=== PATIENT | female | born 1990 | race Caucasian/White ===

== ENCOUNTER 2025-04-21 17:27 | Inpatient (IN) | payer BC, OTHER, SELFPAY ==
[2025-04-21] VITALS (21 sets, daily range): BP systolic 121–167; BP diastolic 67–135; PULSE 94; BMI 17.5; BMI 17.7
[2025-04-21 15:29] LABS: Hematocrit 37.5 % (37.0-47.0); Hemoglobin 12.2 g/dL (12.0-16.0); Mean Corp Hgb Conc. 32.5 g/dL (33.0-37.0); Mean Corpuscular Volume 78.1 fL (81.0-99.0); Nucleated Red Blood Cells % 0 %; Platelet Count 436 10^3/uL (130-400); Red Cell Dist. Width 15.6 % (11.5-14.5)
--- NOTE | 2025-04-21 15:46 | ED.GENMED ---
History of Present Illness
General
Chief Complaint: Abdominal Symptoms
Source: patient and records
Exam Limitations: altered mental status
Time Seen by Provider: 04/21/25 15:17
Nursing documentation reviewed up to this point in time: agreed with
History of Present Illness
History of Present Illness:
34-year-old female apparently homeless drug addiction brought in the local [facility] last evening
Uses methamphetamine, benzodiazepines, alcohol, fentanyl
Here she is tremulous confused vomiting tachycardic
No fever
History of an arrhythmia, history of an epidural abscess?
Phy Exam
Physical Exam
Physical Exam:
Physical Exam
General: Ill-appearing female vomit
Neck: Dry lips
Heart: Tachycardia
Lungs: no acute respiratory distress. clear bilaterally
Abdomen: Soft
Neuro: Confused moves all
Skin: no rash
Psychiatric: Disheveled,
Extremities: no edema.
Course
Orders/Labs/Results
Orders:
Orders
04/21/25 15:04
EKG [Electrocardiogram (*1)] Urgent
Reason for Study: Abdominal Pain
04/21/25 15:05
EKG- Treatment ONCE
Test Result ONCE
04/21/25 15:09
Complete Blood Count/With Diff Urgent
04/21/25 15:33
diazePAM [Valium Injection] 10 mg IV NOW STA
04/21/25 15:34
Add On- LAB Urgent
Tests Added?: magnesium
Drug Screen, Urine [Urine Drug Abuse Screen] Urgent
0.9% Sodium Chloride 1000 ml [Nss] 2,000 ml IV BOLUS
04/21/25 15:35
Fentanyl, Urine Urgent
04/21/25 16:02
Alcohol Urgent
Comprehensive Metabolic Panel Urgent
HCG, Serum Qualitative Screen Urgent
Lipase Urgent
Comment: ADD ON
Magnesium Urgent
04/21/25 16:10
CR Chest Portable - 1 View Urgent
Comment:
Reason For Exam: withdrawals
Reason Study Needs to be Portable: Patient Unstable
04/21/25 16:11
Buprenorphine HCl [Belbuca] 150 mcg BUCCAL NOW STA
04/21/25 16:37
Potassium Chloride [KCl] 40 meq 0.9% Sodium Chloride 250 ml [Nss] 250 ml IV NOW
04/21/25 16:40
Add On- LAB Urgent
Tests Added?: Lipase
Drug Screen, Urine [Urine Drug Abuse Screen] Urgent
Abnormal Lab Results
04/21/25 04/21/25
15:09 16:02
MCV 78.1 L fL
(81.0-99.0)
MCH 25.4 L pg
(27.0-31.0)
MCHC 32.5 L g/dL
(33.0-37.0)
RDW 15.6 H %
(11.5-14.5)
Plt Count 436 H 10^3/uL
(130-400)
Absolute Neuts (auto) 8.1 H 10^3/uL
(1.4-6.5)
Neutrophils % 83.6 H %
(42.2-75.2)
Lymphocytes % 12.5 L %
(20.5-51.1)
Potassium 3.0 L mmol/L
(3.5-5.1)
Glucose 118 H mg/dl
(70-99)
04/21/25 15:09
04/21/25 16:02
Vital Signs
Initial and Last Documented VS:
Initial Vital Signs
Temp Pulse Resp BP Pulse Ox
98.7 F 95 20 151/112 100
04/21/25 15:18 04/21/25 15:18 04/21/25 15:18 04/21/25 15:18 04/21/25 15:18
Last Documented Vital Signs
Temp Pulse Resp BP Pulse Ox
98.7 F 95 20 151/112 100
04/21/25 15:18 04/21/25 15:18 04/21/25 15:18 04/21/25 15:18 04/21/25 15:47
MDM/Problems Addressed
Differential Diagnosis Includes:
Delirium tremens narcotic withdrawal benzo withdrawal dehydration electrolyte abnormality
MDM/Problems Addressed:
Withdrawal
Chronic conditions affecting care:
Homeless drug addiction
Acute Exacerbation and/or Progression of Chronic Illness:
Homeless drug addiction
*Pulse Oximetry
SaO2: 100
Oxygen Mode of Delivery: Room air
Patient hypoxic: no
*EKG
Interpreted by ED Provider?: Yes
Interpretation: abnormal
Comparison EKG: no comparison EKG present
Heart Rate: 75
Rate: normal
Rhythm: sinus
Ischemia: non-specific ST changes
*District Sales Coordinator Interpretation
Rate: normal
Interpretation: normal
Heart Rate: 78
Rhythm: sinus
*Critical Care Note
Total Time (30-74mins, 75-104mins- exclusive of procedures): 32
Update Note
Update Note:
Update, still tremulous and confused, vomiting will require admission drug withdrawal alcohol withdrawal possible DTs
ED Attending Note
-
Portions of this chart may have been created with voice recognition software.� Occasional wrong word or��sound alike� substitutions may have occurred due to the inherent limitations of voice recognition software.
Discharge Plan
Departure
Patient Disposition: Admit
Date of Disposition: 04/21/25
Time of Disposition: 16:40
Admit to: ICU
Presentation/result/management discussed w/ accepting MD/DO: Hospitalist
Patient with high blood pressure during this ER visit?: Yes
Condition: Serious
Covid-19: Not Applicable
Discharge Problem:
Acute drug withdrawal syndrome, DTs (delirium tremens)
Referrals:
UNKNOWN - PT DOES,NOT KNOW [Family Provider]
Discharge Date and Time
Print Language: HEBREW
[2025-04-21] MEDS: NSS 2000 IV (16:06)
[2025-04-21] MEDS: VALIUM INJECTION 10 MG IV ×4 (16:06→23:42)
[2025-04-21 16:26] LABS: HCG, Serum Qualitative Screen Negative
[2025-04-21] MEDS: BELBUCA 150 MCG BUCCAL (16:28)
[2025-04-21 16:32] LABS: ALT (SGPT) 31 U/L (0-35); AST (SGOT) 33 U/L (14-36); Albumin 4.3 g/dl (3.5-5.0); Alkaline Phosphatase 67 U/L (38-126); Blood Urea Nitrogen 13 mg/dl (7-17); Calcium 9.0 mg/dl (8.4-10.2); Carbon Dioxide 25 mmol/L (22-30); Chloride 107 mmol/L (98-107); Estimated Creatinine Clearance 94 ml/min; Glucose 118 mg/dl (70-99); Potassium 3.0 mmol/L (3.5-5.1); Sodium 140 mmol/L (135-145); Total Protein 7.5 g/dl (6.3-8.2); eGFR > 60.00
[2025-04-21 16:54] LABS: Lipase 160 U/L (23-300); Magnesium 1.6 mg/dl (1.6-2.3)
--- NOTE | 2025-04-21 17:11 | HPS.HSE ---
Family Physician
-
Family Physician: NOT KNOW UNKNOWN - PT DOES
Chief Complaint
-
hallucinations, tremors, nausea
History of Present Illness
34yo F with PMHx of drug abuse including IVDA and alcohol, currently homeless brought from incarceration after found with nausea, vomiting and hallucinations. She admitted to the [facility] staff to take various drugs. PAtient found in ED tremulous, c/o
upset stomack, vomiting bile, but without abdominal tenderness. Poor historin but AAOx3. C/O thirst. Afebrile and no leukocytosis.
Medical History
Past Medical History
Past Medical History: Reports None
Past Surgical History: Reports None
Social History
Tobacco: Smoker
Alcohol: Chronic Alcoholic
Drug: Cocaine and IVDA
Living: Homeless
Family History
Family History: Not pertinent
Allergies / Home Medications
Allergies reflects when Allergies were last updated in [facility].
Home Medications with original date entered in [facility]
Allergy/Medication List:
Allergies
Allergy/AdvReac Type Severity Reaction Status Date / Time
No Known Allergies Allergy Verified 04/21/25 15:03
Home Medications
Unobtainable 04/21/25
Review of Systems
-
Unable to obtain full review of systems at this time due to: Acuity
History Source: Patient
Abdomen/GI: Reports Nausea and Vomiting
Physical Exam
Vital Signs
Vital Signs
Temp Pulse Resp BP Pulse Ox
98.7 F 83 24 159/97 100
04/21/25 15:18 04/21/25 17:00 04/21/25 17:00 04/21/25 16:46 04/21/25 16:30
Physical Exam
General: Appears in Distress
HEENT: NormoCephalic, Anicteric and Moist mucous membranes
Respiratory: Clear; No Wheezes or Rhonchi
Cardiac: S1/S2 and Regular Rhythm; No Tachycardia
GI: Soft, Non Tender and Non Distended
Musculoskeletal: No Clubbing, No Cyanosis and No Edema
Skin: Warm; No Rash or Jaundice
Neuro: Awake, Alert, Nonfocal/grossly intact and Cranial Nerves Intact
Psych: Confused and Agitated
Laboratory Results
-
04/21/25 15:09
04/21/25 16:02
Laboratory Results
Total Bilirubin 0.4 mg/dl (0.2-1.3) 04/21/25 16:02
AST 33 U/L (14-36) 04/21/25 16:02
ALT 31 U/L (0-35) 04/21/25 16:02
Alkaline Phosphatase 67 U/L (38-126) 04/21/25 16:02
Lipase 160 U/L (23-300) 04/21/25 16:02
Data Reviewed
-
Lab Data: Labs Reviewed by me
Impression/Plan
-
A/P:
#Polysubstance abuse with withdrawal, impending DT
#Hallucinations 2/2 withdrawal
Precedex drip
RASS 0 to -2
NPO while sedated, IVF
eventual phenobarb
start subutex
CM for BCARES
check UDS
Unable to tolerate CT at this time, but if mentation not improving- CT head
Thiamine Wernikie protocol
FOlate IV
MSAS
check lipase, TSH
#Hypokalemia
#PVCs 2/2 withdrawal and hypokalemia
replete
check Mg
follow electrolytes
#Reactive thrombocytosis
follow CBC
#Microcytosis
check iron panel
DVT ppx lovenox
Full code
I have spent at least 76min of critical care time reviewign chart, test results, data from snf and providing direct patient care
[2025-04-21] MEDS: PRECEDEX 100 IV ×2 (17:27→22:52)
[2025-04-21 17:52] LABS: Iron 106 ug/dl (37-170)
[2025-04-21 18:01] LABS: Total Iron Binding Capacity 379 ug/dl (265-497)
--- NOTE | 2025-04-21 18:10 | PTCARENOTE ---
Received patient from ED, admitted with withdrawal symptoms. Patient arrived agitated and restless, unable to follow commands. Hallucinating and thrashing around in bed. 2 guards present at bedside- 1 shackle placed. Precedex drip infusing per
order. See MAR.
[2025-04-21 18:13] LABS: Glucose - Point of Care 71 mg/dl (70-99)
[2025-04-21] MEDS: PHENOBARBITAL 104 MG IV (18:14)
[2025-04-21] MEDS: ZOFRAN 4 MG IV (18:14)
[2025-04-21] MEDS: KCL 270 MEQ IV (18:19)
[2025-04-21] MEDS: MAGNESIUM SULFATE 50 IV (18:22)
--- NOTE | 2025-04-21 18:28 | PTCARENOTE ---
vascular access at bedside attempting IV access at this time
[2025-04-21] MEDS: D5LR 1000 IV ×2 (18:36→22:11)
--- NOTE | 2025-04-21 18:55 | PTCARENOTE ---
vomited another 150 ml bilious thin fluid, resting eyes closed when undisturbed, still occas restless and pressured nonsensical speech.
--- NOTE | 2025-04-21 20:00 | PTCARENOTE ---
on assessment pt agitated, unable to get IVs, VAT team at bedside to place midline, pt very agitated and unable to remain still, PRN meds given see MAR, DEX gtt infusing per orders, lice noted on pt scalp, pt agreeable to have hair trimmed,
treatment provided, HYDRAULIC MODELING ENGINEER aware
[2025-04-21] MEDS: THIAMINE INJECTION 255 MG IV (20:10)
[2025-04-21] MEDS: LOVENOX 40 MG SC (20:10)
[2025-04-21 20:46] LABS: INR 1.04; PT 14.0 Sec (11.4-14.6)
[2025-04-21 20:47] LABS: APTT 22.0 Sec (23.4-35.0)
[2025-04-21] MEDS: ELIMITE/ACTICIN/PERMETHRIN 5% 1 APPLIC TOPICAL (21:32)
--- NOTE | 2025-04-21 23:15 | PTCARENOTE ---
Prior to applying elimite, pt agreeable to having staff cut her hair for management of lice/nits. Pt having lucid moment and aware of lice & nits -- understands the need to apply elimite. Pt tolerated and cooperative. Witnessed with pts primary RN
and guards at bedside.
--- NOTE | 2025-04-21 23:23 | PTCARENOTE ---
Prior to applying elimite, pt agreeable to having staff cut her hair for management of lice/nits. Pt having lucid moment and aware of lice nits and the need to apply elimite. Witnessed with pts primary RN and guards at bedside.
--- NOTE | 2025-04-21 23:29 | PTCARENOTE ---
pt still restless, PRN meds given see SEP,
[2025-04-22] VITALS (29 sets, daily range): BP systolic 120–170; BP diastolic 82–121; BMI 17.8
[2025-04-22] MEDS: VALIUM INJECTION 10 MG IV ×5 (00:32→04:48)
[2025-04-22] MEDS: THIAMINE INJECTION IV (00:48)
--- NOTE | 2025-04-22 02:29 | PTCARENOTE ---
pt constantly moving in bed when BP cuff is going off, BRUSH MATERIAL PREPARER made aware of high BP see flow sheet
[2025-04-22] MEDS: PRECEDEX 100 IV ×4 (02:45→21:06)
[2025-04-22] MEDS: THIAMINE INJECTION 255 MG IV ×2 (03:20→13:05)
[2025-04-22 03:42] LABS: Hematocrit 32.1 % (37.0-47.0); Hemoglobin 10.7 g/dL (12.0-16.0); Mean Corp Hgb Conc. 33.3 g/dL (33.0-37.0); Mean Corpuscular Volume 80.7 fL (81.0-99.0); Nucleated Red Blood Cells % 0 %; Platelet Count 323 10^3/uL (130-400); Red Cell Dist. Width 15.7 % (11.5-14.5)
--- NOTE | 2025-04-22 04:05 | W.PN.UPDATE ---
Update Note
Progress Note Update
Lice noted on pt scalp, pt agreeable to have hair trimmed, treatment ordered/provided Permethrin 5% topical application x 1 dose.
[2025-04-22 04:10] LABS: ALT (SGPT) 27 U/L (0-35); AST (SGOT) 31 U/L (14-36); Albumin 4.1 g/dl (3.5-5.0); Alkaline Phosphatase 60 U/L (38-126); Blood Urea Nitrogen 9 mg/dl (7-17); Calcium 8.5 mg/dl (8.4-10.2); Carbon Dioxide 22 mmol/L (22-30); Chloride 111 mmol/L (98-107); Estimated Creatinine Clearance 96 ml/min; Glucose 114 mg/dl (70-99); Magnesium 2.3 mg/dl (1.6-2.3); Potassium 3.2 mmol/L (3.5-5.1); Sodium 141 mmol/L (135-145); Total Protein 7.3 g/dl (6.3-8.2); eGFR > 60.00
[2025-04-22] MEDS: KCL 270 MEQ IV (04:48)
[2025-04-22] MEDS: ZANAFLEX PO (05:24)
--- NOTE | 2025-04-22 05:34 | PTCARENOTE ---
pt BP elevated while at rest, PURIFICATION OPERATOR aware, unable to take p.o at this time,
--- NOTE | 2025-04-22 07:49 | W.PN.HOSP.TC ---
Today's Communication/Plan
-
cont precedex and subutex
Assessment / Plan
Assessment / Plan
34yo F with PMHx of drug abuse including IVDA and alcohol, currently homeless brought from incarceration after found with nausea, vomiting and hallucinations. Managed for polysubstance abuse and withdrawal
A/P:
#Polysubstance abuse with withdrawal, impending DT
#Hallucinations 2/2 withdrawal
Precedex drip
RASS 0 to -2
NPO while sedated, IVF
eventual phenobarb
start subutex PRN protocol
UDS: Opiates, Fentanyl, Barbiturates, Amphetamines, Methamphetamines, BZD positive
Unable to tolerate CT at this time, but if mentation not improving- CT head
Thiamine Wernikie protocol
FOlate IV
MSAS
lipase WNL
#Subclinical hyperthyroidism
TSH 0.25, FT4 WNL
repeat TFT 2-3 weeks upon recovery
#Elevated BP 2/2 withdrawal
Hydralazine IV
Clonidine PO
#Hypokalemia
Hypomagnesemia
#PVCs 2/2 withdrawal and hypokalemia
replete
follow electrolytes
#Reactive thrombocytosis
resolved
#Microcytosis
iron panel WNL
DVT ppx lovenox
Full code
I have spent at least 56min of critical care time reviewign chart, test results, data from senior living and providing direct patient care
Anticipated Discharge: > 48 hours
Subjective/Interval History
-
Date of Service: April 22, 2025
Objective Data
-
Labs:
Laboratory Results
04/21/25 04/22/25
19:52 03:08
WBC 8.9
Hgb 10.7 L
Hct 32.1 L
Plt Count 323 D
PT 14.0
INR 1.04
APTT 22.0 L
Sodium 141
Potassium 3.2 L
Chloride 111 H
Carbon Dioxide 22
BUN 9
Creatinine 0.6
Glucose 114 H
Calcium 8.5
Total Bilirubin 0.5
AST 31
ALT 27
Alkaline Phosphatase 60
Vital Signs:
Vital Signs
Temp Pulse Resp BP Pulse Ox
98 F 72 26 167/116 100
04/22/25 07:36 04/22/25 05:15 04/22/25 05:15 04/22/25 05:00 04/22/25 05:15
I&O
04/21/25 04/22/25 04/23/25
06:59 06:59 06:59
Intake Total 1707.6 / 1707.6
Output Total 1200 / 1200
Balance 507.6 / 507.6
Review of Systems
-
Unable to obtain full review of systems at this time due to: Other (sedation)
Physical Exam
-
General: No Apparent Distress
Neuro: Sedated
Psych: Calm
--- NOTE | 2025-04-22 08:00 | CON.INTV ---
Consultation
Consultation Request
Date/Time Consultation Requested: 04/21/25, 17:11
Date/Time Consultation Performed: 04/23/25, 8:00am
Medical History
-
Chief Complaint: polysubstance abuse withdrawal (ETOH, IV drugs)
History of Present Illness:
Pt is a 34yo F with a pmh of WANG (IVDU opioids, cocaine, alcohol), tobacco use, homelessness, & incarceration (current), who presents with nausea/vomiting and hallucinations c/f multisubstance withdrawal.
In the ED, pt was tremulous and with bilious emesis. Denied abdominal tenderness. Complained of thirst. Was AOx3. Afebrile. BP 151/112, HR 95-101, RR 24-30. No leukocytosis. Labs unremarkable. Blood alcohol level negative. UDS negative for cocaine &
marijuana, positive for amphetamines, opioids, benzos (unclear timing of UDS w meds given in ED). Pt noted to have lice on scalp; hair was trimmed.
CXR in the ED demonstrated no evidence of acute cardiopulm dz. EKG in the ED: sinus rhythm with frequent PVCs in bigeminy pattern.
Pt received buprenorphine, phenobarb taper, precedex, thiamine, folate, zofran, IVF. Started on COWS/MSAS protocol w diazepam PRN, and PRN tizanidine and clonidine. Pt was given topical permethrin 5% for scalp.
This am, patient was somnolent and unable to be aroused to respond to questions. Unable to confirm amount/type of substances or time of last use. Appeared to be sleeping comfortably.
Past Medical History
Past Medical History: Other (WANG )
Past Surgical History: None
Social History
Tobacco: Smoker
Alcohol: Other (yes, unknown amt )
Drug: Cocaine, Narcotics and IVDA
Living: Homeless and Long-Term
Family History
Family History: Reviewed & Not Pertinent
Allergies / Home Medications
Allergies
Allergy/AdvReac Type Severity Reaction Status Date / Time
No Known Allergies Allergy Verified 04/21/25 15:03
Home Medications
�Medication �Instructions �Recorded �Confirmed �Last Taken �Type
Unobtainable 04/21/25 04/21/25 Unknown History
Review of Systems
-
Unable to Obtain full review of systems at this time due to: Other (patient not arousable )
History Source: Patient
Vitals / Labs / Diagnostic Testing
Vital Signs
Temp Pulse Resp BP Pulse Ox
98 F 66 29 148/116 100
04/22/25 07:36 04/22/25 07:45 04/22/25 07:45 04/22/25 07:00 04/22/25 07:45
Lab Data
04/22/25 03:08
04/22/25 03:08
Laboratory Results
04/21/25
19:52
PT 14.0
INR 1.04
APTT 22.0 L
Diagnostic Testing:
Physical Exam
-
HEENT: Normocephalic
Cardiovascular: Regular Rhythm
Respiratory: Non-Labored Respirations
GI: Non Distended
Neurology: Other (sedated)
Skin: Dry and Good Color
General: Other (sleeping comfortably; with soft restraints on extremities; handcuff on L ankle )
Assessment
-
Pt is a 34yo F with a pmh of WANG (IVDU opioids, cocaine, alcohol), tobacco use, homelessness, & incarceration (current), who presents with nausea/vomiting and hallucinations c/f multisubstance withdrawal.
#Multisubstance withdrawal (alcohol/benzo & opioid)
#Hallucinations in s/o withdrawal
UDS + for amphetamines/methamphetamines, opiates, fentanyl, benzo. Pt endorsed alcohol use, cocaine use (negative on UDS), & IVDU (likely opioid). P/w hallucinations and n/v. Will cover for presumed combination opioid withdrawal and benzo/alcohol
withdrawal.
Today: sedated/somnolent; unable to endorse sx.
- Re-initiate buprenorphine/oxycodone protocol for opioid withdrawal; COWs
- Start opioid (4morphine or 50 fentanyl or 0.5mg dilaudid) if pt not able to take PO above
- Continue precedex (rate of 1.5 ml/hr)
- Continue phenobarb taper (received 97.5mg today)
- Continue thiamine and folate IV
- PRNs: tizanidine 2m q6h, zofran 4mg q8h, clonidine 0.1mg q6h
- Hold on benzos today (avoid oversedation)
- VBG this afternoon
#HTN
In s/o multidrug withdrawal. 151/112 on presentation.
Today: 148/116; HR 66
- Hydralazine 10mg q4h prn if systolic BP>170
#Anemia
Hgb 12.2>10.7; MCV: 80.7; RDW: 15.7. Likely 2/2 inflammatory state. Iron level wnl 106.
- Continue to monitor
- Could consider retic count, ferritin
#Hypokalemia
#PVCs
PVCs in s/o withdrawal, hypokalemia. Mg 1.6 on admission, K 3.0
Today: K 3.2, Mg 2.3
- Continue KCl repletion
- Continue Mg repletion
- Keep K>4, Mg>2
- Trend BMP
- Telemetry
#Lice
S/p haircut and permethrin topical application.
- Continue to monitor
#Chronic
- Subclinical hyperthyroidism (TSH 0.25, free T4 wnl) - Repeat TSH 2-3 weeks upon recovery
- Tobacco use - Nicotine patch while inpatient
#Global
- DVT ppx: lovenox
- Diet: NPO while sedated
- Code: full
- Dispo: intermediate
Data Reviewed
-
EKG: Report reviewed by me
Radiology: Report reviewed by me
Labs: Labs reviewed by me
Critical Care Time (in minutes): 40
Total Time Spent with Patient (in minutes): 10
[2025-04-22] MEDS: PHENOBARBITAL 97.5 MG IV ×3 (08:36→21:06)
[2025-04-22] MEDS: FOLVITE PO (08:48)
[2025-04-22] MEDS: VALIUM INJECTION 5 MG IV (09:01)
[2025-04-22] MEDS: FOLVITE 50.2 MG IV (09:01)
--- NOTE | 2025-04-22 10:28 | PTCARENOTE ---
Rec'd care of patient at 0700. Alerted by guards that patient voided on the floor. Patient restless and agitated in bed. Unable to be reoriented. Complete bed bath provided and patient repositioned for comfort. Patient calm and sleeping after care.
Precedex gtt infusing. NSR on tele. Lung sounds cta. Pulse ox 98-99% on RA. +BS. No bm. NPO due to mental status. IVFs infusing through left midline. Incontinent of urine. Plan of care discussed during rounds. Microdosing protocol initiated.
[2025-04-22] MEDS: SUBLIMAZE 50 MCG IV (11:09)
[2025-04-22] MEDS: BELBUCA 300 MCG BUCCAL ×4 (11:09→23:35)
[2025-04-22] MEDS: D5LR 1000 IV ×2 (11:10→23:23)
[2025-04-22 11:19] LABS: Reticulocyte Count 1.6 % (0.4-2.8)
[2025-04-22] MEDS: NICODERM TRANSDERMAL 7 MG TRANSDERM (12:39)
--- NOTE | 2025-04-22 13:11 | CM ---
Patient going through withdrawal. Is in custody of [facility]. Officers present. Discharge POC: Patient to return to [facility]. BCARES notified of consult.
--- NOTE | 2025-04-22 13:52 | PTCARENOTE ---
Mentation improving throughout shift. Patient aware she is in the hospital and why. Cooperative with care. IVF rate decreased. Diet advanced to regular. Head ct completed per MD order. No other changes.
[2025-04-22 13:57] LABS: Ferritin 12.7 ng/ml (6.24-137)
[2025-04-22 15:04] LABS: Venous Blood Gas B.E. -1.8 mmol/L (-4 to +4); Venous Blood Gas O2 Sat % 95.5 %
[2025-04-22] MEDS: THIAMINE INJECTION 200 MG IV ×2 (16:23→23:30)
[2025-04-22] MEDS: OXYCONTIN (CONTROLLED RELEASE) 40 MG PO ×2 (16:23→23:35)
--- NOTE | 2025-04-22 16:43 | PTCARENOTE ---
Patient resting comfortably. Oriented. NSR on tele. VSS. Assisted in ordering dinner. Precedex gtt remains infusing.
[2025-04-22] MEDS: LOVENOX 40 MG SC (18:09)
[2025-04-22] MEDS: REMOVE NICOTINE PATCH 1 PATCH REMOVE (21:17)
--- NOTE | 2025-04-22 21:45 | PTCARENOTE ---
Received pt from previous RN. Pt is AAOx3, drowsy @ times, anxious. NSR on the monitor. Pt on RA O2 sat 100%, lungs clear. Pw in place for incont, pw exchanged hygiene provided. Received dex at 1.5 mcg, titration per protocol (see worklist). IVF
infusing @ 80 ml/hr. CHG bath provided. Two guards at bedside. Call colon in reach. Safe environment maintained.
[2025-04-23] VITALS (26 sets, daily range): BP systolic 103–185; BP diastolic 74–142; BMI 18.5
--- NOTE | 2025-04-23 00:17 | PTCARENOTE ---
Systems reviewed, no new changes in assessment. Dex gtt maintained. Call colon in reach. Safe environment maintained.
--- NOTE | 2025-04-23 04:04 | PTCARENOTE ---
Systems reviewed, no new changes in assessment. AM labs provided. Call colon in reach. Safe environment maintained.
[2025-04-23] MEDS: BELBUCA 300 MCG BUCCAL ×2 (04:11→09:14)
[2025-04-23 04:55] LABS: Hematocrit 30.3 % (37.0-47.0); Hemoglobin 10.0 g/dL (12.0-16.0); Mean Corp Hgb Conc. 33.0 g/dL (33.0-37.0); Mean Corpuscular Volume 80.6 fL (81.0-99.0); Nucleated Red Blood Cells % 0 %; Platelet Count 287 10^3/uL (130-400); Red Cell Dist. Width 15.3 % (11.5-14.5)
[2025-04-23 05:16] LABS: ALT (SGPT) 21 U/L (0-35); AST (SGOT) 19 U/L (14-36); Albumin 3.2 g/dl (3.5-5.0); Alkaline Phosphatase 52 U/L (38-126); Blood Urea Nitrogen 10 mg/dl (7-17); Calcium 8.2 mg/dl (8.4-10.2); Carbon Dioxide 22 mmol/L (22-30); Chloride 110 mmol/L (98-107); Estimated Creatinine Clearance 100 ml/min; Glucose 96 mg/dl (70-99); Magnesium 1.8 mg/dl (1.6-2.3); Potassium 3.4 mmol/L (3.5-5.1); Sodium 136 mmol/L (135-145); Total Protein 6.2 g/dl (6.3-8.2); eGFR > 60.00
[2025-04-23] MEDS: KCL 40 MEQ PO (05:30)
[2025-04-23] MEDS: PRECEDEX 100 IV (05:32)
[2025-04-23] MEDS: MAGNESIUM SULFATE 100 IV (05:32)
--- NOTE | 2025-04-23 07:56 | W.PN.INTV ---
Today's Communication / Plan
Recommendations
- Wean precedex off today, then downgrade to tele
- Continue buprenorphine
- Continue phenobarb taper
- Continue thiamine/folate IV
- Laxatives standing
- Replete K, Mg
- Add ensure to regular diet
- Stop IVF
- PRN zofran
Assessment
-
Pt is a 34yo F with a pmh of WANG (IVDU opioids, cocaine, alcohol), tobacco use, homelessness, & incarceration (current), who presents with nausea/vomiting and hallucinations c/f multisubstance withdrawal.
#Multisubstance withdrawal (alcohol/benzo & opioid)
#Hallucinations in s/o withdrawal
UDS + for amphetamines/methamphetamines, opiates, fentanyl, benzo. Pt endorsed alcohol use, cocaine use (negative on UDS), & IVDU (likely opioid). P/w hallucinations and n/v. Will cover for presumed combination opioid withdrawal and benzo/alcohol
withdrawal.
Today: Afebrile, not tachycardic, not tachypneic. Sx well-controlled. Able to keep down food.
- Continue buprenorphine/oxycodone protocol for opioid withdrawal; COWs
- Continue weaning down precedex (rate of 0.3 ml/hr this am)
- Continue phenobarb taper (received 97.5mg yesterday)
- Continue thiamine and folate IV
- PRNs: tizanidine 2m q6h, zofran 4mg q8h, clonidine 0.1mg q6h
- Hold on benzos (avoid oversedation)
- Stop D5 fluids today
#HTN
In s/o multidrug withdrawal. 151/112 on presentation.
Today: 157/112; HR 66
- Hydralazine 10mg q4h prn if systolic BP>170
#Anemia
Hgb 12.2>10.7>10; MCV: 80.7; RDW: 15.7. Iron level wnl 106. Ferritin 12.7. Retic 1.6. wnl. Likely dilutional.
- Continue to monitor
#Hypokalemia
#PVCs
PVCs in s/o withdrawal, hypokalemia. Mg 1.6 on admission, K 3.0
Today: K 3.4, Mg 1.8
- Continue KCl repletion
- Continue Mg repletion
- Keep K>4, Mg>2
- Trend BMP
- Telemetry
#Lice
S/p haircut and permethrin topical application.
- Continue to monitor
#Chronic
- Subclinical hyperthyroidism (TSH 0.25, free T4 wnl) - Repeat TSH 2-3 weeks upon recovery
- Tobacco use - Nicotine patch while inpatient
#Global
- DVT ppx: lovenox
- Diet: regular + ensure
- Code: full
- Dispo: retirement; downgrade to tele once off precedex
Subjective Dataa
Subjective Data
Date of Service:
Date of Service: April 23, 2025
Chief Complaint: Podiatric Physician Follow Up
Subjective:
Patient awake, responsive this morning. States that she had an episode of emesis yesterday but has not had nausea/vomiting since dinner. She was able to keep down food and water. Denies any ongoing hallucinations, denies tremors, denies abdominal
pain, denies diarrhea, denies shortness of breath. Has no complaints of symptoms. Per RN, has strong appetite.
Review of Systems
General: Satisfactory Appetite
Cardiopulmonary: Dyspnea (denies)
GI: Abdominal Pain (denies), Nausea (Denies) and Diarrhea (Denies)
Neuro: Headache (Denies)
Objective Data
Data Reviewed
Vital Signs / I&O / Oxygen:
Vital Signs
Temp Pulse Resp BP Pulse Ox
98.3 F 66 20 157/112 100
04/23/25 04:10 04/23/25 07:00 04/23/25 07:00 04/23/25 07:00 04/22/25 21:34
Intake and Output
04/22/25 04/23/25 04/24/25
06:59 06:59 06:59
Intake Total 1707.6 / 1849.9 3195.0 / 3195.0
Output Total 1200 / 1200 225 / 225
Balance 507.6 / 649.9 2970.0 / 2970.0
SaO2 100
Physical Exam
General: Comfortable
HEENT: Normocephalic and Anicteric
Cardiovascular: Regular Rhythm
Respiratory: Clear and Non-Labored Respirations
GI: Soft and Non Distended
Neurology: Awake, Alert and Oriented
Skin: Warm and Dry
Labs/Micro/Reports
Lab Data
04/23/25 04:22
04/23/25 04:22
Microbiology
04/22/25 03:08 Nose MRSA Screen - Final
No Methicillin Resistant Staphylococcus aureus isolated.
[2025-04-23] MEDS: NICODERM TRANSDERMAL 7 MG TRANSDERM (09:13)
[2025-04-23] MEDS: FOLVITE 1 MG PO (09:13)
[2025-04-23] MEDS: OXYCONTIN (CONTROLLED RELEASE) 40 MG PO ×3 (09:13→23:49)
[2025-04-23] MEDS: THIAMINE INJECTION 200 MG IV ×3 (09:14→23:49)
[2025-04-23] MEDS: PHENOBARBITAL 97.5 MG IV (09:14)
--- NOTE | 2025-04-23 09:26 | PN.CDI ---
CDI
- -
CDI:
Physician Documentation Request
Admit Date: 04/21/25 17:27
Dear Doctor Lu,
Please review the following and provide your response in the progress notes.
Clinical Indicators:
Height: 5 ft 4 in
Weight:107 lb 12 oz
BMI:17.5
Other Clinical Notes: Pt admitted with polysubstance withdrawal
Nutrition note 04/22,' CBW: 103 lbs 13.404oz BMI 17.8 underweight (04/22). ...04/22 underweight related to suspected inadequate energy intakes as evidenced by BMI...'
If possible, please provide an associated diagnosis related to the abnormal BMI, such as:
BMI < or = to 19
Underweight
Cachectic
- Other
Use of terms such as suspected, likely, concern for, or probable (associated with a specific diagnosis that is being evaluated, monitored, or treated as if it exists) are acceptable and can be coded in the inpatient setting, when documented at the
time of discharge.
Thank you,
Gail Reaves RN
CDI Specialist
[place] [facility]
Please use your independent medical judgment in providing your response.
[2025-04-23] MEDS: ZOFRAN 4 MG IV ×2 (09:29→20:57)
[2025-04-23] MEDS: D5LR IV (09:49)
[2025-04-23] MEDS: MIRALAX 17 GRAMS PO (10:39)
[2025-04-23] MEDS: SENOKOT-S 1 TABLET PO ×2 (10:42→20:46)
[2025-04-23] MEDS: ZANAFLEX PO (10:46)
[2025-04-23] MEDS: TIGAN 200 MG IM (10:57)
--- NOTE | 2025-04-23 11:03 | W.PN.HOSP.TC ---
Today's Communication/Plan
-
hallucinations resolved, doing well, wean off Phenobarb and ok with transfer to [facility]
COmplete tapering phenobarb and d/c afterwards
Assessment / Plan
Assessment / Plan
34yo F with PMHx of drug abuse including IVDA and alcohol, currently homeless brought from incarceration after found with nausea, vomiting and hallucinations. Managed for polysubstance abuse and withdrawal
A/P:
#Polysubstance abuse with withdrawal, impending DT
#Hallucinations 2/2 withdrawal
Precedex drip to wean off, cont phenobarb, MSAS and symptomatic Subutex
UDS: Opiates, Fentanyl, Barbiturates, Amphetamines, Methamphetamines, BZD positive
Unable to tolerate CT at this time, but if mentation not improving- CT head
Thiamine Wernikie protocol
FOlate IV
MSAS
lipase WNL
Head CT without acute findings
#Subclinical hyperthyroidism
TSH 0.25, FT4 WNL
repeat TFT 2-3 weeks upon recovery
#Elevated BP 2/2 withdrawal
Hydralazine IV
Clonidine PO
#Hypokalemia
#Hypomagnesemia
#PVCs 2/2 withdrawal and hypokalemia
replete
follow electrolytes
#Reactive thrombocytosis
resolved
#Microcytosis
iron panel WNL
DVT ppx lovenox
Full code
I have spent at least 36min of critical care time reviewign chart, test results, data from [facility] and providing direct patient care
Anticipated Discharge: > 48 hours
Subjective/Interval History
-
Date of Service: April 23, 2025
Objective Data
-
Labs:
Laboratory Results
04/23/25
04:22
WBC 9.0
Hgb 10.0 L
Hct 30.3 L
Plt Count 287
Sodium 136
Potassium 3.4 L
Chloride 110 H
Carbon Dioxide 22
BUN 10
Creatinine 0.5 L
Glucose 96
Calcium 8.2 L
Total Bilirubin 0.2
AST 19
ALT 21
Alkaline Phosphatase 52
Vital Signs:
Vital Signs
Temp Pulse Resp BP Pulse Ox
98.3 F 75 8 142/111 100
04/23/25 08:14 04/23/25 10:00 04/23/25 10:00 04/23/25 10:00 04/22/25 21:34
I&O
04/22/25 04/23/25 04/24/25
06:59 06:59 06:59
Intake Total 1707.6 / 1849.9 3195.0 / 3280.8 1698.6 / 1698.6
Output Total 1200 / 1200 225 / 225
Balance 507.6 / 649.9 2970.0 / 3055.8 1698.6 / 1698.6
Review of Systems
-
History Source: Patient
All other systems: Reviewed and negative
Physical Exam
-
General: No Apparent Distress
HEENT: Normocephalic
GI: Soft, Nontender and Nondistended
Neuro: Awake, Alert, Oriented and AO x 3; Negative Tremors
Psych: Calm; Negative Confused
--- NOTE | 2025-04-23 11:07 | PTCARENOTE ---
pt vomiting, orders rec'd for IM TIgan, administered -see MAR.
[2025-04-23] MEDS: SUBUTEX 2 MG SL ×3 (12:17→20:54)
[2025-04-23] MEDS: APRESOLINE 10 MG IV (12:20)
--- NOTE | 2025-04-23 15:14 | CM ---
Doing better, hallucinations have stopped, weaning off Phenobarb. Discharge POC: Return to [facility].
[2025-04-23] MEDS: COMPAZINE 10 MG IV (15:43)
[2025-04-23] MEDS: LUMINAL 64.8 MG PO ×2 (15:49→20:54)
--- NOTE | 2025-04-23 15:58 | PTCARENOTE ---
Pt rec'd this am from night RN in report, Precedex infusing as documented, continuing to wean per protocol. Pt tolerated full breakfast and all oral medications for about an hour but then became nauseated and started vomiting around 09:30. PRN
Zofran given, no real effect noted, orders rec'd for IM Tigan which was given. Pt ambulated to bathroom with computer systems integrator around 14:30 for large amount urine in toilet. HR increased to 130s with activity but returned to low 100s after back in bed. Pt
slept s/p Tigan dose this am but awakens now with ongoing nausea and vomiting. Pt not yet due for PRN Zofran, Dr. Gordon notified, orders rec'd for Compazine now and Zofran dose changed to Q6. Compazine given at this time, continuing to monitor for
effect. Pt did complain of back pain which is not new for her, HR noted to jump up to 140s briefly, ST on monitor, but then returned to SR at 81 bpm. BP improved also s/p earlier administration of PRN Hydralazine, see flowsheet. Pt remains AOx3 and
cooperative with all care -Precedex remains off since titrating down this am around 11am. See worklist for details.2 guards remain at bedside, pt shackled with one cuff to bed. Safe environment maintained.
--- NOTE | 2025-04-23 18:20 | PTCARENOTE ---
Pt remains sleeping since 16:00 med pass, arousable to tactile stim.Guards remain at bedside. Per business services coordinator, contact precautions due to be lifted (s/p 24 hrs after tx of lice. ) Standard precautions in place.
[2025-04-23] MEDS: LOVENOX SC (18:33)
--- NOTE | 2025-04-23 18:35 | PTCARENOTE ---
Pt awake -HR in 140s, pt stated she had to use bathroom, walked to bathroom with assist for very large amount urine. HR now trending down to 130s, pt resting in bed.
[2025-04-23] MEDS: REMOVE NICOTINE PATCH 1 PATCH REMOVE (20:46)
--- NOTE | 2025-04-23 21:39 | PTCARENOTE ---
Received pt from previous RN. Pt is AAOx3, drowsy, anxious at times. NSR/ sinus tach on the monitor. Pt on RA O2 sat 100%, lungs clear, tachypneic. Pt c/o nausea and vomited x1, PRN Zofran given (see MAR). BRPx1. Guards at bedside. Call colon in
reach. Safe environment maintained.
[2025-04-24] VITALS (12 sets, daily range): BP systolic 117–168; BP diastolic 85–111; BMI 18.5
[2025-04-24 04:11] LABS: Blood Urea Nitrogen 10 mg/dl (7-17); Calcium 8.9 mg/dl (8.4-10.2); Carbon Dioxide 25 mmol/L (22-30); Chloride 106 mmol/L (98-107); Estimated Creatinine Clearance 100 ml/min; Glucose 104 mg/dl (70-99); Potassium 3.8 mmol/L (3.5-5.1); Sodium 136 mmol/L (135-145); eGFR > 60.00
[2025-04-24] MEDS: SENOKOT-S 1 TABLET PO ×2 (08:49→21:36)
[2025-04-24] MEDS: MIRALAX 17 GRAMS PO (08:49)
[2025-04-24] MEDS: NICODERM TRANSDERMAL 7 MG TRANSDERM (08:49)
[2025-04-24] MEDS: LUMINAL 64.8 MG PO ×3 (08:50→21:35)
[2025-04-24] MEDS: OXYCONTIN (CONTROLLED RELEASE) 40 MG PO (08:50)
[2025-04-24] MEDS: FOLVITE 1 MG PO (08:50)
[2025-04-24] MEDS: SUBUTEX 2 MG SL (08:50)
[2025-04-24] MEDS: NSS 1000 IV ×2 (08:53→23:26)
--- NOTE | 2025-04-24 08:53 | W.PN.HOSP.TC ---
Today's Communication/Plan
-
Cont wiithdrawal mgmt
MRI back
Bcx
Assessment / Plan
Assessment / Plan
34yo F with PMHx of drug abuse including IVDA and alcohol, Hx of L4-L5 epidural abscess s/p IV Abx in [place] in Jul 2024, currently homeless brought from incarceration after found with nausea, vomiting and hallucinations. Managed for polysubstance
abuse and withdrawal
A/P:
#Polysubstance abuse with withdrawal, impending DT
#Hallucinations 2/2 withdrawal
Precedex drip to wean off, cont phenobarb, MSAS and symptomatic Subutex
UDS: Opiates, Fentanyl, Barbiturates, Amphetamines, Methamphetamines, BZD positive
Unable to tolerate CT at this time, but if mentation not improving- CT head
Thiamine Wernikie protocol
FOlate IV
MSAS
lipase WNL
Head CT without acute findings
#Acute on chronic lower back pain
#Hx of L4-L5 epidural abscess
currently afebrile and with normal leukocytes, but reports worsening of her lower back pain
MRI lumbar
Bcx
#Subclinical hyperthyroidism
most likely 2/2 Fentanyl
TSH 0.25, FT4 WNL
repeat TFT 2-3 weeks upon recovery
#Elevated BP 2/2 withdrawal
Hydralazine IV
Clonidine PO
#Hypokalemia
#Hypomagnesemia
#PVCs 2/2 withdrawal and hypokalemia
resolved
replete
follow electrolytes
#Reactive thrombocytosis
resolved
#Microcytosis
2/2 drug abuse
iron panel WNL
DVT ppx lovenox
Full code
I have spent at least 51min reviewing chart, test results, data from [facility] and providing direct patient care
Anticipated Discharge: > 48 hours
Subjective/Interval History
-
Date of Service: April 24, 2025
Objective Data
-
Labs:
Laboratory Results
04/24/25
03:45
Sodium 136
Potassium 3.8
Chloride 106
Carbon Dioxide 25
BUN 10
Creatinine 0.6
Glucose 104 H
Calcium 8.9
Vital Signs:
Vital Signs
Temp Pulse Resp BP Pulse Ox
98.2 F 86 18 138/99 100
04/24/25 07:38 04/24/25 07:00 04/24/25 07:00 04/24/25 06:00 04/23/25 21:42
I&O
04/23/25 04/24/25 04/25/25
06:59 06:59 06:59
Intake Total 3195.0 / 3280.8 2348.6 / 2348.6
Output Total 225 / 225
Balance 2970.0 / 3055.8 2348.6 / 2348.6
Review of Systems
-
History Source: Patient
All other systems: Reviewed and negative
Neuro: Reports Other (lower back pain)
Physical Exam
-
General: No Apparent Distress
HEENT: Normocephalic
Respiratory: Clear to Auscultation
Cardiac: Regular Rhythm
GI: Soft, Nontender and Nondistended
Musculoskeletal: No Clubbing, No Cyanosis and No Edema
Skin: Warm; Negative Lesions
Neuro: Awake, Alert, Oriented and AO x 3
Psych: Calm
[2025-04-24] MEDS: ZOFRAN 4 MG IV ×2 (09:01→17:28)
[2025-04-24] MEDS: THIAMINE INJECTION 200 MG IV ×2 (09:11→15:50)
--- NOTE | 2025-04-24 11:15 | PTCARENOTE ---
Received pt from previous RN. Pt is AAOx3, drowsy, anxious at times. NSR/ sinus tach on the monitor. Pt on RA O2 sat 100%, lungs clear, tachypneic. Pt c/o nausea and vomited x1 after consuming breakfast, PRN Zofran given (see MAR). BRPx1. Voided
large amount urine. Plan discussed with Dr. Leigh, orders received and carried out for 1 L bolus, MRI of spine (pt with back gi since epidural abscess last year) and will downgrade to telemetry. Sleeping after zofran, 2 guards at bedside. Call
colon in reach. Safe environment maintained.
[2025-04-24] MEDS: SUBUTEX 4 MG SL ×3 (12:09→21:35)
--- NOTE | 2025-04-24 12:33 | PTCARENOTE ---
Bcx drawn and sent by phlebotomy; tele orders rec'd at this time.
[2025-04-24] MEDS: TYLENOL 650 MG PO ×2 (14:35→21:53)
[2025-04-24] MEDS: OXYCONTIN (CONTROLLED RELEASE) 20 MG PO (15:50)
--- NOTE | 2025-04-24 16:03 | CM ---
Transferred to Room 320-1. Discharge POC: Return to [facility].
--- NOTE | 2025-04-24 16:43 | TRANSFER ---
Patient transported from ICU to 3W and arrived to unit around 1530, patient appears drowsy. VSS. Patient able to transfer from stretcher to bed. Oriented to staff and unit. Guards present in room. All needs met at this time. Plan of care ongoing.
[2025-04-24] MEDS: LOVENOX SC ×2 (17:18→17:32)
[2025-04-24] MEDS: REMOVE NICOTINE PATCH 1 PATCH REMOVE (21:36)
[2025-04-24] MEDS: OFIRMEV 100 IV (23:26)
[2025-04-24 23:46] LABS: Hematocrit 32.8 % (37.0-47.0); Hemoglobin 10.8 g/dL (12.0-16.0); Mean Corp Hgb Conc. 32.9 g/dL (33.0-37.0); Mean Corpuscular Volume 78.7 fL (81.0-99.0); Nucleated Red Blood Cells % 0 %; Platelet Count 279 10^3/uL (130-400); Red Cell Dist. Width 15.4 % (11.5-14.5)
[2025-04-25] VITALS (7 sets, daily range): BP systolic 114–156; BP diastolic 79–102
[2025-04-25] MEDS: OXYCONTIN (CONTROLLED RELEASE) 20 MG PO (00:02)
[2025-04-25] MEDS: THIAMINE INJECTION 200 MG IV ×2 (00:02→08:13)
[2025-04-25 00:06] LABS: Urine Character Clear (Clear)
[2025-04-25 00:08] LABS: Blood Urea Nitrogen 13 mg/dl (7-17); Calcium 8.3 mg/dl (8.4-10.2); Carbon Dioxide 23 mmol/L (22-30); Chloride 99 mmol/L (98-107); Estimated Creatinine Clearance 100 ml/min; Glucose 165 mg/dl (70-99); Potassium 3.7 mmol/L (3.5-5.1); Sodium 128 mmol/L (135-145); eGFR > 60.00
[2025-04-25 00:38] LABS: Urine Red Blood Cell 0-2 /HPF (0-2); Urine White Cell 50-60 /HPF (0-5)
[2025-04-25 01:41] LABS: COVID-19 Antigen Negative (Negative)
--- NOTE | 2025-04-25 02:13 | W.PN.UPDATE ---
Update Note
Progress Note Update
Notified by RN patient spiked new temp 103. Rx Sepsis workup
Assessment - AAOX3, Lungs CTA, HR tachycardic regular. Abdomen distended firm hypoactive - last bm 5 days ago per nursing. 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
Patient reports abdomen tender to palpation.
Rx
CXR minimal change, awaiting official reading.
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 - see complete report for details.
WBC slight elevated 11.5
Rx Levofloxin
Soap nakita enema
CBC CMP in AM
case discussed with hospitalist Dr. Yoder
[2025-04-25] MEDS: LEVAQUIN 100 IV (04:14)
[2025-04-25] MEDS: ZOSYN 50 IV ×3 (08:13→20:00)
[2025-04-25] MEDS: OXYCONTIN (CONTROLLED RELEASE) PO (08:14)
[2025-04-25] MEDS: TIGAN 200 MG IM (08:14)
[2025-04-25] MEDS: LUMINAL PO (08:14)
[2025-04-25] MEDS: FOLVITE PO (08:14)
[2025-04-25] MEDS: MIRALAX PO (08:28)
[2025-04-25] MEDS: SENOKOT-S PO (08:29)
[2025-04-25] MEDS: SUBUTEX 4 MG SL (08:33)
[2025-04-25] MEDS: NICODERM TRANSDERMAL 7 MG TRANSDERM (08:34)
--- NOTE | 2025-04-25 08:47 | CON.VAS ---
Consultation
Consultation Request
Reason for Consultation: Venous collaterals seen on CT
Medical History
-
History of Present Illness:
34 yo F here with withdrawal symptoms. Vascular surgery consulted due to incidental finding of large venous collaterals in pelvis. Patient denies history of prior DVT or trauma to her pelvis. She does not complain of any leg swelling. She has a C
section scar and another scar in her right groin area but she does not know what this is from.
Social History
Drug: IVDA
Living: Skilled Nursing
Family History
Family History: Reviewed & Not Pertinent
Allergies / Home Medications
Allergy/AdvReac Type Severity Reaction Status Date / Time
No Known Allergies Allergy Verified 04/21/25 15:03
�Medication �Instructions �Recorded �Confirmed �Type
Unobtainable 04/21/25 04/21/25 History
Review of Systems
-
History Source: Patient
All other systems: Negative unless noted
Physical Exam
Vital Signs
Temp Pulse Resp BP Pulse Ox
99.4 F 108 18 114/79 100
04/25/25 07:00 04/25/25 07:00 04/25/25 07:00 04/25/25 07:00 04/25/25 07:00
Physical Exam
General: Well Developed and Other (generally appears uncomfortable)
HEENT: Normocephalic
Cardiac: S1/S2 and Other (no swelling in legs bilaterally)
Skin: Warm
Neuro: AO x 3
Psych: Agitated
Pulses: Bilateral Femoral: +2
Assessment / Plan
-
I personally reviewed her CT scan. 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 Her arteries are in tact and her left iliac veins are open. Her right external iliac vein is difficult to visualize and I suspect is therefore
this is chronically occluded, further evidenced by the large collaterals likely draining her right leg. I see no evidence of acute thrombosis. Given she is asymptomatic and no evidence of acute thrombosis I would not recommend AC or any intervention.
--- NOTE | 2025-04-25 09:54 | PTCARENOTE ---
patient with episode of n/v this am, vomited large amount of emesis per guard dance hall and PRN Tigan administered with good relief (see MAR), diffuse abd tenderness and c/o abd pain 12/30. discussed case with Dr. Leigh during his rounding on
patient and pt made NPO except meds and ice chips, abd x-ray ordered, PRN Dilaudid added, PRN Subutex added, continue Zosyn and IVF's. Also, discussed with him patient refusing laxatives and enema. will continue to monitor.
[2025-04-25 10:06] LABS: Hematocrit 37.1 % (37.0-47.0); Hemoglobin 11.9 g/dL (12.0-16.0); Mean Corp Hgb Conc. 32.1 g/dL (33.0-37.0); Mean Corpuscular Volume 80.0 fL (81.0-99.0); Nucleated Red Blood Cells % 0 %; Platelet Count 272 10^3/uL (130-400); Red Cell Dist. Width 15.5 % (11.5-14.5)
[2025-04-25] MEDS: D5/0.9% SODIUM CHLORIDE 1000 IV ×2 (10:31→22:05)
[2025-04-25 10:48] LABS: ALT (SGPT) 20 U/L (0-35); AST (SGOT) 25 U/L (14-36); Albumin 3.9 g/dl (3.5-5.0); Alkaline Phosphatase 62 U/L (38-126); Blood Urea Nitrogen 13 mg/dl (7-17); Calcium 8.4 mg/dl (8.4-10.2); Carbon Dioxide 26 mmol/L (22-30); Chloride 98 mmol/L (98-107); Estimated Creatinine Clearance 100 ml/min; Glucose 98 mg/dl (70-99); Lipase 58 U/L (23-300); Potassium 4.1 mmol/L (3.5-5.1); Sodium 132 mmol/L (135-145); Total Protein 6.9 g/dl (6.3-8.2); eGFR > 60.00
--- NOTE | 2025-04-25 11:32 | W.PN.HOSP.TC ---
Addendum entered and electronically signed by Charles Leigh MD 04/25/25 14:15:
Partial vertebral body fusion across the L4-5 disc space, possibly related to prior infection or injury in this region, no other worrisome findings on CT in lower spine. With no point tenderness, new focal neuro findings and now pain 2/2 pancolitis
- will hold off MRI back
Original Note:
Today's Communication/Plan
-
IV pain mgmt
XR abd
Zosyn
NPO and IVF
Assessment / Plan
Assessment / Plan
34yo F with PMHx of drug abuse including IVDA and alcohol, Hx of L4-L5 epidural abscess s/p IV Abx in [place] in Jul 2024, currently homeless brought from incarceration after found with nausea, vomiting and hallucinations. Managed for polysubstance
abuse and withdrawal
A/P:
#Abdominal pain with fever, leukocytosis most likely 2/2 colitis
No diarrhea
developed fever on 04/24/25 with pain overnight same evening
CT abd: acute uncomplicated proctocolitis from the descending colon to the rectum. Dilated intrahepatic and extrahepatic biliary ducts, nonspecific
LFT, lactate and Lipase remained WNL
Zosyn
watch for deterioration, serial Abd XR to noit to miss complications
#Ileus and constipation
iatrogenic
patient declined enema and laxatives
NPO for now
IVF
#Small caliber right external iliac vein
VascSx consult
#Polysubstance abuse with withdrawal, impending DT
#Hallucinations 2/2 withdrawal
Precedex drip to wean off, cont phenobarb, MSAS and symptomatic Subutex
UDS: Opiates, Fentanyl, Barbiturates, Amphetamines, Methamphetamines, BZD positive
Unable to tolerate CT at this time, but if mentation not improving- CT head
Thiamine Wernikie protocol
FOlate IV
MSAS
lipase WNL
Head CT without acute findings
#Acute on chronic lower back pain
#Hx of L4-L5 epidural abscess
currently afebrile and with normal leukocytes, but reports worsening of her lower back pain
MRI lumbar
Bcx
#Subclinical hyperthyroidism
most likely 2/2 Fentanyl
TSH 0.25, FT4 WNL
repeat TFT 2-3 weeks upon recovery
#Elevated BP 2/2 withdrawal
Hydralazine IV
Clonidine PO
#Hypokalemia
#Hypomagnesemia
#PVCs 2/2 withdrawal and hypokalemia
resolved
replete
follow electrolytes
#Reactive thrombocytosis
resolved
#Microcytosis
2/2 drug abuse
iron panel WNL
DVT ppx lovenox
Full code
I have spent at least 58min reviewing chart, test results, data from [facility] and providing direct patient care
Anticipated Discharge: > 48 hours
Subjective/Interval History
-
Date of Service: April 25, 2025
Objective Data
-
Labs:
Laboratory Results
04/24/25 04/25/25
23:39 09:53
WBC 11.5 H 10.8
Hgb 10.8 L 11.9 L
Hct 32.8 L 37.1
Plt Count 279 272
Sodium 128 L D 132 L
Potassium 3.7 4.1
Chloride 99 98
Carbon Dioxide 23 26
BUN 13 13
Creatinine 0.5 L 0.6
Glucose 165 H 98
Calcium 8.3 L 8.4
Total Bilirubin 0.5
AST 25
ALT 20
Alkaline Phosphatase 62
Vital Signs:
Vital Signs
Temp Pulse Resp BP Pulse Ox
99.4 F 108 18 114/79 100
04/25/25 07:00 04/25/25 07:00 04/25/25 07:00 04/25/25 07:00 04/25/25 07:00
I&O
04/24/25 04/25/25 04/26/25
06:59 06:59 06:59
Intake Total 2348.6 / 2348.6 3540 / 3540
Output Total 300 / 300
Balance 2348.6 / 2348.6 3240 / 3240
Review of Systems
-
History Source: Patient
All other systems: Reviewed and negative
Abdomen/GI: Reports Abdominal Pain
Physical Exam
-
General: No Apparent Distress
HEENT: Normocephalic
Respiratory: Clear to Auscultation
GI: Nondistended and Tender; Negative Soft
Musculoskeletal: No Clubbing, No Cyanosis, Edema, Right Upper Extrem and Edema, Left Upper Extrem
Neuro: Awake, Alert, Oriented and AO x 3
Psych: Agitated
--- NOTE | 2025-04-25 13:31 | PTCARENOTE ---
pt medicated with PRN Subutex, COWS score 4. c/o starting to feel withdrawal symptoms and went to sleep afterwards. sleeping most of day, unless disturbed or having to go to BR. will continue to monitor.
[2025-04-25] MEDS: SUBUTEX 2 MG SL (13:36)
[2025-04-25] MEDS: LUMINAL 32.4 MG PO ×2 (17:35→22:06)
[2025-04-25] MEDS: MIRALAX 17 GRAMS PO ×2 (17:37→22:06)
[2025-04-25] MEDS: LOVENOX SC (17:43)
--- NOTE | 2025-04-25 17:44 | PTCARENOTE ---
pt agreeable to taking Miralax after several discussions of how it benefits her bowels and need to get large amount of stool out of colon. PT was continent of small formed BM prior to Miralax, tolerated 100% of full liquid tray, will continue to
monitor.
[2025-04-25] MEDS: SUBUTEX 8 MG SL (19:59)
[2025-04-25] MEDS: VITAMIN B1 100 MG PO (19:59)
[2025-04-25] MEDS: SENOKOT-S 1 TABLET PO (19:59)
[2025-04-25] MEDS: TYLENOL 650 MG PO (20:04)
[2025-04-25] MEDS: REMOVE NICOTINE PATCH 1 PATCH REMOVE (22:07)
[2025-04-26] MEDS: ZOSYN 50 IV ×4 (02:48→20:29)
[2025-04-26 03:44] VITALS: BP 138/84
[2025-04-26 08:10] VITALS: BP 143/100
[2025-04-26 08:20] LABS: ALT (SGPT) 18 U/L (0-35); AST (SGOT) 28 U/L (14-36); Albumin 3.1 g/dl (3.5-5.0); Alkaline Phosphatase 44 U/L (38-126); Blood Urea Nitrogen 9 mg/dl (7-17); Calcium 7.8 mg/dl (8.4-10.2); Carbon Dioxide 24 mmol/L (22-30); Chloride 106 mmol/L (98-107); Estimated Creatinine Clearance 100 ml/min; Glucose 101 mg/dl (70-99); Potassium 3.7 mmol/L (3.5-5.1); Sodium 134 mmol/L (135-145); Total Protein 5.8 g/dl (6.3-8.2); eGFR > 60.00
[2025-04-26] MEDS: D5/0.9% SODIUM CHLORIDE 1000 IV ×2 (08:42→17:55)
[2025-04-26] MEDS: NICODERM TRANSDERMAL 7 MG TRANSDERM (08:43)
[2025-04-26] MEDS: MIRALAX 17 GRAMS PO ×2 (08:44→20:29)
[2025-04-26] MEDS: SENOKOT-S 1 TABLET PO ×2 (08:44→20:29)
[2025-04-26] MEDS: VITAMIN B1 100 MG PO ×2 (08:45→20:29)
[2025-04-26] MEDS: LUMINAL 32.4 MG PO ×3 (08:45→23:03)
[2025-04-26] MEDS: SUBUTEX 8 MG SL (08:45)
[2025-04-26] MEDS: FOLVITE 1 MG PO (08:45)
[2025-04-26 10:37] LABS: Hematocrit 27.1 % (37.0-47.0); Hemoglobin 9.1 g/dL (12.0-16.0); Mean Corp Hgb Conc. 33.6 g/dL (33.0-37.0); Mean Corpuscular Volume 81.1 fL (81.0-99.0); Nucleated Red Blood Cells % 0.5 %; Platelet Count 213 10^3/uL (130-400); Red Cell Dist. Width 15.1 % (11.5-14.5)
--- NOTE | 2025-04-26 11:12 | W.PN.HOSP.TC ---
Addendum entered and electronically signed by Charles Leigh MD 04/26/25 16:47:
#Rectal prolapse
Colorectal Sx
#HEpC Ab positive
outpatient PCR and GI for mgt as unsure if can be treated reliably f released [facility] before completion of therapy
Addendum entered and electronically signed by Charles Leigh MD 04/26/25 11:51:
#Underweight
advised to increase calorie intake
Original Note:
Today's Communication/Plan
-
improving
minimal abd pain, did not take any pain meds overnight, requesting Regular diet - will start
cont Zosyn, target augmentin upon d/c
HepC and HIV test
COnt Subutex upon d/c
Assessment / Plan
Assessment / Plan
34yo F with PMHx of drug abuse including IVDA and alcohol, Hx of L4-L5 epidural abscess s/p IV Abx in [place] in Jul 2024, currently homeless brought from incarceration after found with nausea, vomiting and hallucinations. Managed for polysubstance
abuse and withdrawal
A/P:
#Abdominal pain with fever, leukocytosis most likely 2/2 colitis
#Ileus and constipation - iatrogenic
patient declined enema and laxatives
No diarrhea
developed fever on 04/24/25 with pain overnight same evening
CT abd: acute uncomplicated proctocolitis from the descending colon to the rectum. Dilated intrahepatic and extrahepatic biliary ducts, nonspecific
LFT, lactate and Lipase remained WNL
Zosyn
watch for deterioration, serial Abd XR without complications
patient agreeable for HepC and HIV tests
#Small caliber right external iliac vein
VascSx consult: no further mgmt needed, possible sequela of previous trauma
#Polysubstance abuse with withdrawal, impending DT
#Hallucinations 2/2 withdrawal
Precedex drip to wean off, cont phenobarb - tapering, MSAS and Subutex - now on standing 16mcg daily
UDS: Opiates, Fentanyl, Barbiturates, Amphetamines, Methamphetamines, BZD positive
Unable to tolerate CT at this time, but if mentation not improving- CT head
Thiamine Wernicke protocol
FOlate
MSAS
lipase WNL
Head CT without acute findings
#Acute on chronic lower back pain
#Hx of L4-L5 epidural abscess
Partial vertebral body fusion across the L4-5 disc space, possibly related to prior infection or injury in this region, no other worrisome findings on CT in lower spine. With no point tenderness, new focal neuro findings and now pain 2/2 pancolitis
- will hold off MRI back
Bcx NTD
#Subclinical hyperthyroidism
most likely 2/2 Fentanyl
TSH 0.25, FT4 WNL
repeat TFT 2-3 weeks upon recovery
#Elevated BP 2/2 withdrawal
Hydralazine IV
Clonidine PO
#Hypokalemia
#Hypomagnesemia
replete
follow electrolytes
#PVCs 2/2 withdrawal and hypokalemia
resolved
#Reactive thrombocytosis
resolved
#Microcytosis
2/2 drug abuse
iron panel WNL
DVT ppx lovenox
Full code
I have spent at least 51min reviewing chart, test results, data from [facility] and providing direct patient care
Anticipated Discharge: Within 24 hours
Subjective/Interval History
-
Date of Service: April 26, 2025
Objective Data
-
Labs:
Laboratory Results
04/26/25 04/26/25
07:24 11:02
WBC 3.7 L Pending
Hgb 9.1 L D Pending
Hct 27.1 L Pending
Plt Count 213 D Pending
Sodium 134 L
Potassium 3.7
Chloride 106
Carbon Dioxide 24
BUN 9
Creatinine 0.5 L
Glucose 101 H
Calcium 7.8 L
Total Bilirubin 0.2
AST 28
ALT 18
Alkaline Phosphatase 44
Vital Signs:
Vital Signs
Temp Pulse Resp BP Pulse Ox
98.2 F 78 16 143/100 98
04/26/25 08:10 04/26/25 08:10 04/26/25 08:10 04/26/25 08:10 04/26/25 08:10
I&O
04/25/25 04/26/25 04/27/25
06:59 06:59 06:59
Intake Total 3540 / 3540 2970 / 2970
Output Total 300 / 300
Balance 3240 / 3240 2970 / 2970
Review of Systems
-
History Source: Patient
All other systems: Reviewed and negative
Physical Exam
-
General: No Apparent Distress
HEENT: Normocephalic
Respiratory: Clear to Auscultation
Cardiac: Regular Rhythm
GI: Soft, Nondistended and Tender (mid abd)
Musculoskeletal: No Clubbing, No Cyanosis and No Edema
Neuro: Awake, Alert, Oriented and AO x 3
Psych: Calm
[2025-04-26 12:19] VITALS: BP 144/102
[2025-04-26] MEDS: ZANAFLEX 2 MG PO ×2 (12:23→18:23)
[2025-04-26 12:24] LABS: Hepatitis C Antibody Reactive (Negative)
[2025-04-26] MEDS: SUBUTEX 2 MG SL ×2 (14:18→20:36)
[2025-04-26] MEDS: TIGAN 200 MG IM (15:24)
[2025-04-26 16:46] VITALS: BP 160/94
--- NOTE | 2025-04-26 17:04 | PTCARENOTE ---
notified that pt has prolapsed rectum, approx 3-3.5' in diameter. Hold the dulcolax, new order, colorectal consulted.
[2025-04-26] MEDS: LOVENOX SC (17:34)
[2025-04-26] MEDS: CATAPRES 0.1 MG PO (17:53)
[2025-04-26] MEDS: TYLENOL 650 MG PO (17:53)
[2025-04-26 19:55] VITALS: BP 128/81
[2025-04-26] MEDS: REMOVE NICOTINE PATCH 1 PATCH REMOVE (20:29)
[2025-04-26 23:14] VITALS: BP 138/87
[2025-04-26] MEDS: MELATONIN 3 MG PO (23:21)
[2025-04-27] MEDS: ZOSYN 50 IV ×4 (02:26→20:27)
[2025-04-27 03:46] VITALS: BP 140/90
[2025-04-27] MEDS: TYLENOL 650 MG PO (05:05)
[2025-04-27] MEDS: SUBUTEX 2 MG SL ×3 (05:06→23:39)
[2025-04-27] MEDS: ZANAFLEX 2 MG PO ×3 (05:34→21:20)
--- NOTE | 2025-04-27 06:07 | PTCARENOTE ---
pt prolapse rectum - continues to be red, some blood noted, and pain. given Tylenol w/ some eff. pt npo since 2am, chg wipes completed. to be evaluated in am.
[2025-04-27 07:41] VITALS: BP 129/80
[2025-04-27] MEDS: NICODERM TRANSDERMAL 7 MG TRANSDERM (08:37)
[2025-04-27] MEDS: FOLVITE 1 MG PO (08:37)
[2025-04-27] MEDS: MIRALAX 17 GRAMS PO ×2 (08:37→20:27)
[2025-04-27] MEDS: SENOKOT-S 1 TABLET PO ×2 (08:37→20:27)
[2025-04-27] MEDS: VITAMIN B1 100 MG PO ×2 (08:39→20:28)
[2025-04-27] MEDS: SUBUTEX 16 MG SL (08:47)
[2025-04-27] MEDS: LUMINAL 32.4 MG PO (08:48)
[2025-04-27 10:06] LABS: Hematocrit 30.9 % (37.0-47.0); Hemoglobin 10.1 g/dL (12.0-16.0); Mean Corp Hgb Conc. 32.7 g/dL (33.0-37.0); Mean Corpuscular Volume 81.5 fL (81.0-99.0); Platelet Count 300 10^3/uL (130-400); Red Cell Dist. Width 14.8 % (11.5-14.5)
[2025-04-27 10:30] LABS: ALT (SGPT) 19 U/L (0-35); AST (SGOT) 24 U/L (14-36); Albumin 3.5 g/dl (3.5-5.0); Alkaline Phosphatase 57 U/L (38-126); Blood Urea Nitrogen 8 mg/dl (7-17); Calcium 8.6 mg/dl (8.4-10.2); Carbon Dioxide 27 mmol/L (22-30); Chloride 102 mmol/L (98-107); Estimated Creatinine Clearance 100 ml/min; Glucose 96 mg/dl (70-99); Potassium 4.3 mmol/L (3.5-5.1); Sodium 134 mmol/L (135-145); Total Protein 6.4 g/dl (6.3-8.2); eGFR > 60.00
[2025-04-27 11:04] VITALS: BP 123/82
[2025-04-27 11:05] LABS: C-Reactive Protein 30.90 mg/L (0.0-10.00)
[2025-04-27 11:07] LABS: Nucleated Red Blood Cells % 0 %
--- NOTE | 2025-04-27 11:23 | CON.CRS ---
Consultation
-
Date/Time Consultation Requested: 04/26/2025, 16:47
Date/Time Consultation Performed: 04/26/2025, 09:30
Requesting Provider: Charles Leigh MD
Performing Provider: Mario Alberto Carson MD
Reason for Consultation: rectal prolapse
Medical History
-
Chief Complaint: rectal prolapse
History of Present Illness:
34yo female, with a PMH of polysubstance abuse, presents from senior living due to withdrawal. She was initially admitted to the ICU and was downgraded to the medical surgical floor as she improved. Yesterday she noticed a rectal prolapse. She had a CT two
days ago due to 'rule out ileus' due to constipation, which showed likely acute uncomplicated proctocolitis from the descending colon to the rectum and a moderate fecal burden. Typically her bowel movements are once a week. She has never noticed
blood before but she had some yesterday. She came in with nausea and vomiting initially which has resolved. She had some mild abdominal pain two days ago. Denies chest pain or shortness of breath. She had a fever three days ago but nothing since.
Denies a prior colonoscopy. She states she now has something in her rectum and it is painful.
Past Medical History
Past Medical History: Other (h/o abdominal abscess)
Past Surgical History: and Other (lap drainage of abdominal abscess (secondary to drug use))
Social History
Tobacco: Smoker
Alcohol: Chronic Alcoholic
Drug: Narcotics and IVDA
Living: [facility]
Family History
Family History: Reviewed & Not Pertinent
Allergies / Home Medications
Allergy/AdvReac Type Severity Reaction Status Date / Time
No Known Allergies Allergy Verified 04/21/25 15:03
�Medication �Instructions �Recorded �Confirmed �Type
Unobtainable 04/21/25 04/21/25 History
Review of Systems
-
History Source: Patient
: Other (rectal pain)
A 10 point review of systems was completed, and was negative except as per HPI.
Physical Exam
Vital Signs
Temp 97.7 F 04/27/25 11:04
Pulse 77 04/27/25 11:04
Resp Rate 18 04/27/25 11:04
Blood pressure 123/82 04/27/25 11:04
SaO2 99 04/27/25 11:04
Body Mass Index (BMI) 18.5
Lab Results / Allergies
04/27/25 09:11
04/27/25 09:11
WBC 5.0 10^3/uL (4.8-10.8) 04/27/25 09:11
Hgb 10.1 g/dL (12.0-16.0) L 04/27/25 09:11
Hct 30.9 % (37.0-47.0) L 04/27/25 09:11
Plt Count 300 10^3/uL (130-400) D 04/27/25 09:11
Abs Immat Gran (auto) 0.1 10^3/uL (0-0.05) H 04/27/25 09:11
Neutrophils % 45.6 % (42.2-75.2) 04/27/25 09:11
Allergy/AdvReac Type Severity Reaction Status Date / Time
No Known Allergies Allergy Verified 04/21/25 15:03
Physical Exam
General: Well Developed and Well Nourished
GI: Soft, Tender (mild discomfort throughout) and Incisions (old c section scar, old lap scars on abdomen)
Rectal: Other (rectal prolapse noted - red mucosa, warm and reducible )
Skin: Warm and Dry
Neuro: AO x 3
Psych: Calm
Data Reviewed
-
CT Scan: Image Personally Visualized and interpreted, Report Reviewed by me and Discussed with Patient
Medical Tests (Nuc Med, Echo etc): Image Personally Visualized and interpreted, Report Reviewed by me and Discussed with Patient
Labs: Labs Reviewed by me, Discussed with Physician and Discussed with Patient
Old Records: Reviewed
Assessment / Plan
-
Assessment: 34yo female with a history of polysubstance abuse presents for withdrawal, who developed abdominal pain and rectal prolapse (reducable)
Plan:
-Continue regular diet
-Continue IV antibiotics
-Recommend GI consult for proctitis found on CT scan
-No plans for urgent surgery, but will need eventual surgical repair. Timing to be decided.
-Fecal calprotectin, CRP pending
-Maintain bowel regimen
--- NOTE | 2025-04-27 12:00 | PTCARENOTE ---
Patient with visible lice and nits. Physician notified, order obtained for Permethrin. Patient's hair shampooed, Permethrin applied, rinsed with water and combed.
--- NOTE | 2025-04-27 12:37 | W.PN.HOSP.TC ---
Addendum entered and electronically signed by Jos Gabriel MD 04/27/25 17:20:
per pt, she is on seroquel 50mg TID prn at [facility]. restarted.
Original Note:
Today's Communication/Plan
-
Await GI input
Repeat permethrin cream application
Await CRS final recs
P.o. antibiotics on discharge
Plan for tentative DC if no plan for intervention further
Assessment / Plan
Assessment / Plan
34yo F with PMHx of drug abuse including IVDA and alcohol, Hx of L4-L5 epidural abscess s/p IV Abx in [place] in Jul 2024, currently homeless brought from incarceration after found with nausea, vomiting and hallucinations. Managed for polysubstance
abuse and withdrawal
A/P:
#Abdominal pain with fever, leukocytosis most likely 2/2 proctitis
#Ileus and constipation - iatrogenic
CT abd: acute uncomplicated proctocolitis from the descending colon to the rectum. Large right colonic stool burden. Dilated intrahepatic and extrahepatic biliary ducts, nonspecific
LFT, lactate and Lipase remained WNL
Zosyn
Status post bowel regimen leading to rectal prolapse. CRS following and found prolapse to be reducible. Requesting GI input for proctitis.
GI input requested.
#Rectal prolapse
Reduced by CRS team. Plan for outpatient follow-up for eventual surgery.
#Small caliber right external iliac vein
VascSx consult: no further mgmt needed, possible sequela of previous trauma
#Polysubstance abuse with withdrawal, impending DT
#Hallucinations 2/2 withdrawal
Precedex drip to wean off, cont phenobarb - tapering, MSAS and Subutex - now on standing 16mcg daily
UDS: Opiates, Fentanyl, Barbiturates, Amphetamines, Methamphetamines, BZD positive
Unable to tolerate CT at this time, but if mentation not improving- CT head
Thiamine Wernicke protocol
FOlate
MSAS
lipase WNL
Head CT without acute findings
#Acute on chronic lower back pain
#Hx of L4-L5 epidural abscess
Partial vertebral body fusion across the L4-5 disc space, possibly related to prior infection or injury in this region, no other worrisome findings on CT in lower spine. With no point tenderness, new focal neuro findings and now pain 2/2 pancolitis
- will hold off MRI back
Bcx NTD
#Subclinical hyperthyroidism
most likely 2/2 Fentanyl
TSH 0.25, FT4 WNL
repeat TFT 2-3 weeks upon recovery
#Head lice
Permethrin application once again.
#Elevated BP 2/2 withdrawal
Monitor for now
#Hypokalemia
#Hypomagnesemia
replete
follow electrolytes
#PVCs 2/2 withdrawal and hypokalemia
resolved
#Reactive thrombocytosis
resolved
#Microcytosis
2/2 drug abuse
iron panel WNL
DVT ppx lovenox
Full code
Anticipated Discharge: Within 24 hours
Subjective/Interval History
-
Date of Service: April 27, 2025
denies abd pain
no nausea or vomiting
Objective Data
-
Labs:
Laboratory Results
04/27/25
09:11
WBC 5.0
Hgb 10.1 L
Hct 30.9 L
Plt Count 300 D
Sodium 134 L
Potassium 4.3
Chloride 102
Carbon Dioxide 27
BUN 8
Creatinine 0.6
Glucose 96
Calcium 8.6
Total Bilirubin 0.1 L
AST 24
ALT 19
Alkaline Phosphatase 57
Vital Signs:
Vital Signs
Temp Pulse Resp BP Pulse Ox
97.7 F 77 18 123/82 99
04/27/25 11:04 04/27/25 11:04 04/27/25 11:04 04/27/25 11:04 04/27/25 11:04
I&O
04/26/25 04/27/25 04/28/25
06:59 06:59 06:59
Intake Total 2970 / 2970 1800 / 1800
Balance 2970 / 2970 1800 / 1800
Physical Exam
-
General: No Apparent Distress, Appears Chronically Ill and Other (disshelved)
HEENT: Normocephalic
Respiratory: Clear to Auscultation
Cardiac: Regular Rhythm and S1/S2
GI: Soft, Nontender, Nondistended and Normal Bowel Sounds
Musculoskeletal: No Clubbing, No Cyanosis and No Edema
Neuro: Awake, Alert, Oriented and AO x 3
Psych: Calm
Data Reviewed
-
Total Time Spent with Patient (in minutes): 55
--- NOTE | 2025-04-27 12:38 | CM ---
Patient chart reviewed
PMH of polysubstance abuse, presents from skilled nursing due to withdrawal
PLAN: Return to [facility] when stable
report #: [phone] - Yulisa
fax #: [phone]
[2025-04-27] MEDS: ELIMITE/ACTICIN/PERMETHRIN 5% 1 APPLIC TOPICAL (13:31)
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
[2025-04-27 15:40] VITALS: BP 109/78
[2025-04-27] MEDS: CITROMA 300 ML PO (17:07)
[2025-04-27] MEDS: LOVENOX SC (17:08)
[2025-04-27] MEDS: REMOVE NICOTINE PATCH 1 PATCH REMOVE (20:27)
[2025-04-27] MEDS: MELATONIN 3 MG PO (20:27)
[2025-04-27] MEDS: TIGAN 200 MG IM (20:27)
[2025-04-27 23:00] VITALS: BP 129/87
[2025-04-28] MEDS: ZOSYN 50 IV ×4 (03:35→20:13)
[2025-04-28] MEDS: ZANAFLEX 2 MG PO (06:38)
[2025-04-28] MEDS: SUBUTEX 2 MG SL ×3 (06:38→20:26)
[2025-04-28 07:05] LABS: Hematocrit 38.3 % (37.0-47.0); Hemoglobin 12.2 g/dL (12.0-16.0); Mean Corp Hgb Conc. 31.9 g/dL (33.0-37.0); Mean Corpuscular Volume 80.8 fL (81.0-99.0); Nucleated Red Blood Cells % 0 %; Platelet Count 440 10^3/uL (130-400); Red Cell Dist. Width 14.9 % (11.5-14.5)
[2025-04-28 07:11] VITALS: BP 136/76
[2025-04-28 07:19] LABS: C-Reactive Protein 19.90 mg/L (0.0-10.00)
[2025-04-28 07:33] LABS: ALT (SGPT) 24 U/L (0-35); AST (SGOT) 32 U/L (14-36); Albumin 5.0 g/dl (3.5-5.0); Alkaline Phosphatase 83 U/L (38-126); Blood Urea Nitrogen 14 mg/dl (7-17); Calcium 9.9 mg/dl (8.4-10.2); Carbon Dioxide 29 mmol/L (22-30); Chloride 95 mmol/L (98-107); Estimated Creatinine Clearance 100 ml/min; Glucose 91 mg/dl (70-99); Potassium 4.9 mmol/L (3.5-5.1); Sodium 134 mmol/L (135-145); Total Protein 9.2 g/dl (6.3-8.2); eGFR > 60.00
[2025-04-28] MEDS: NICODERM TRANSDERMAL 7 MG TRANSDERM (07:43)
[2025-04-28] MEDS: MIRALAX 17 GRAMS PO ×2 (07:43→20:13)
[2025-04-28] MEDS: SUBUTEX 16 MG SL (07:44)
[2025-04-28] MEDS: VITAMIN B1 100 MG PO ×2 (07:44→20:13)
[2025-04-28] MEDS: FOLVITE 1 MG PO (07:44)
[2025-04-28] MEDS: SENOKOT-S 1 TABLET PO ×2 (07:45→20:13)
--- NOTE | 2025-04-28 09:13 | CM ---
Addendum entered by Mabel Barton 04/28/25 14:56:
patient seen at bedside
States her plan is to go to [facility] in [place] - she states that her Aunt Gilda Vargas ([phone]) is talking to admissions and trying to get her in rehab.
CM asked if she wanted her Aunt added in [facility] as a contact and she said yes. CM to follow up with her aunt as patient gave permission to speak to her
Left message with Jessica from [facility] as she was following patient
Patient stated prior to [facility] was living with her ex with at his parents home in [place] & does not wish to return
She stated does not have PCP
stated Pharmacy was [facility], could not recall address
stated was at [facility] , [facility] [place] in 2016
PLAN: ?[facility], CM will call patient aunt, CARLEY to also follow up with patient
Addendum entered by Mabel Barton 04/28/25 13:55:
Guards from [facility] left patient room
CM called Yulisa at [facility] - [phone] who stated that she was discharged from [facility]. No longer in [facility] custody
PLAN: CM to follow for new disposition/needs
Original Note:
chart reviewed
GI consult
from [facility]
PLAN: PLAN: Return to [facility] when stable
report #: [phone]
fax #: [phone]
--- NOTE | 2025-04-28 09:36 | W.PN.CRS1 ---
Today's Communication / Plan
-
no plans for OR
maintain bowel regimen per GI
will s/o
Assessment/Plan
-
Assessment: 34yo female with a history of polysubstance abuse presents for withdrawal, who developed abdominal pain and rectal prolapse (reducable)
Plan:
-Continue regular diet
-GI consult for constipation/proctitis
-No plans for urgent surgery, but will need eventual surgical repair if she chooses (she is not that interested)
-Fecal calprotectin pending
-Maintain bowel regimen
-Will sign off, please contact if further surgical issues arise
Subjective Data
Subjective Data
Date of Service: April 28, 2025
Patient states that she has not had any rectal prolapse since the reduction yesterday. She had bowel movements over the past three days. Denies pain or bleeding.
Objective Data
-
Vital Signs
Temp Pulse Resp BP Pulse Ox
98.6 F 72 18 136/76 97
04/28/25 07:11 04/28/25 07:11 04/28/25 07:11 04/28/25 07:11 04/28/25 07:11
Intake & Output
04/27/25 04/28/25 04/29/25
06:59 06:59 06:59
Intake Total 1800 / 1800 2930 / 2930
Output Total 1500 / 1500
Balance 1800 / 1800 1430 / 1430
Intake:
Oral fluids 1600 / 1600 2880 / 2880
IV fluids (Total) 100 / 100
IV piggybacks 100 / 100 50 / 50
Output:
Urine, Voided 1500 / 1500
Other:
Number of approximated MODERATE 3 3
amounts of urine
Number of approximated LARGE 6
amounts of urine
Lab Results
04/28/25 06:36
10/07/25 06:36
Physical Exam
-
General: No Acute Distress and AOx3
Abdomen: Soft, Non Distended and Non Tender
Skin: Warm and Dry
--- NOTE | 2025-04-28 10:04 | PN.CDI ---
CDI
- -
CDI:
Physician Documentation Request
Admit Date: 04/21/25 17:27
Dear Doctor Harvey,
Please review the following and provide your response in the progress notes.
Clinical Indicators:
Pt admitted with polysubstance withdrawal
Sodium levels are as below/Pt did get IVFs
Laboratory Tests
04/24/25 04/25/25 04/26/25
23:39 09:53 07:24
Sodium 128 L D 132 L 134 L
04/27/25 04/28/25
09:11 06:36
Sodium 134 L 134 L
Based on the above, could you clarify in the progress notes, the appropriate diagnosis, if significant, that supports the above abnormalities and additional evaluation, monitoring and/or treatment rendered:
Hyponatremia
Abnormal lab value only
Other ( please specify)
Use of terms such as suspected, likely, concern for, or probable (associated with a specific diagnosis that is being evaluated, monitored, or treated as if it exists) are acceptable and can be coded in the inpatient setting, when documented at the
time of discharge.
Thank you,
Gail Reaves RN
CDI Specialist
[facility]
Please use your independent medical judgment in providing your response.
--- NOTE | 2025-04-28 11:20 | W.PN.HOSP.TC ---
Today's Communication/Plan
-
Additional bowel regimen treatment
GI input
Outpatient CRS follow-up
Assessment / Plan
Assessment / Plan
34yo F with PMHx of drug abuse including IVDA and alcohol, Hx of L4-L5 epidural abscess s/p IV Abx in [place] in Jul 2024, currently homeless brought from incarceration after found with nausea, vomiting and hallucinations. Managed for polysubstance
abuse and withdrawal
A/P:
#Abdominal pain with fever, leukocytosis most likely 2/2 proctitis
#Ileus and constipation - iatrogenic
CT abd: acute uncomplicated proctocolitis from the descending colon to the rectum. Large right colonic stool burden. Dilated intrahepatic and extrahepatic biliary ducts, nonspecific
LFT, lactate and Lipase remained WNL
Zosyn
Status post bowel regimen leading to rectal prolapse. CRS following and found prolapse to be reducible. Outpatient follow-up for surgery
Status post mag citrate not much results. Continue with MiraLAX twice daily. Senna Colace twice daily. May require additional treatment. Relistor? GoLytely?
GI input requested.
#Rectal prolapse
Reduced by CRS team. Plan for outpatient follow-up for eventual surgery.
#Small caliber right external iliac vein
VascSx consult: no further mgmt needed, possible sequela of previous trauma
#Polysubstance abuse with withdrawal, impending DT
#Hallucinations 2/2 withdrawal
Precedex drip to wean off, cont phenobarb - tapering, MSAS and Subutex - now on standing 16mcg daily
UDS: Opiates, Fentanyl, Barbiturates, Amphetamines, Methamphetamines, BZD positive
Unable to tolerate CT at this time, but if mentation not improving- CT head
Thiamine Wernicke protocol
FOlate
MSAS
lipase WNL
Head CT without acute findings
#Acute on chronic lower back pain
#Hx of L4-L5 epidural abscess
Partial vertebral body fusion across the L4-5 disc space, possibly related to prior infection or injury in this region, no other worrisome findings on CT in lower spine. With no point tenderness, new focal neuro findings and now pain 2/2 pancolitis
- will hold off MRI back
Bcx NTD
#Subclinical hyperthyroidism
most likely 2/2 Fentanyl
TSH 0.25, FT4 WNL
repeat TFT 2-3 weeks upon recovery
#Head lice
Permethrin application x 2.
#Elevated BP 2/2 withdrawal
Monitor for now
#Hypokalemia
#Hypomagnesemia
replete
follow electrolytes
#PVCs 2/2 withdrawal and hypokalemia
resolved
#Reactive thrombocytosis
resolved
#Microcytosis
2/2 drug abuse
iron panel WNL
#Mild hyponatremia
Monitor for now
DVT ppx lovenox
Full code
Anticipated Discharge: Within 24 hours
Subjective/Interval History
-
Date of Service: April 28, 2025
States of feeling mildly nauseous
Also states of mild abdominal pain
Not having much bowel movements
Objective Data
-
Labs:
Laboratory Results
04/28/25
06:36
WBC 7.8
Hgb 12.2 D
Hct 38.3
Plt Count 440 H D
Sodium 134 L
Potassium 4.9
Chloride 95 L
Carbon Dioxide 29
BUN 14
Creatinine 0.6
Glucose 91
Calcium 9.9
Total Bilirubin 0.4
AST 32
ALT 24
Alkaline Phosphatase 83
Vital Signs:
Vital Signs
Temp Pulse Resp BP Pulse Ox
98.6 F 72 18 136/76 97
04/28/25 07:11 04/28/25 07:11 04/28/25 07:11 04/28/25 07:11 04/28/25 07:11
I&O
04/27/25 04/28/25 04/29/25
06:59 06:59 06:59
Intake Total 1800 / 1800 2930 / 2930
Output Total 1500 / 1500
Balance 1800 / 1800 1430 / 1430
Physical Exam
-
General: No Apparent Distress, Appears Chronically Ill and Other (disshelved)
HEENT: Normocephalic
Respiratory: Clear to Auscultation
Cardiac: Regular Rhythm and S1/S2
GI: Soft, Nondistended, Normal Bowel Sounds and Tender
Musculoskeletal: No Clubbing, No Cyanosis and No Edema
Neuro: Awake, Alert, Oriented and AO x 3
Psych: Calm
--- NOTE | 2025-04-28 13:00 | PTCARENOTE ---
Patient is no longer a forensic patient with [facility] at of 1330 today.
--- NOTE | 2025-04-28 13:05 | W.PN.GI.CBS2 ---
Today's Communication / Plan
-
more aggressive bowel regimen
Assessment / Plan
-
Pt is a 34yo with hx IVDA and ETOH abuse, hep C with treatment about 1 year ago, homelessness [facility] with nausea, vomiting, and hallucinations and concern for withdrawal and also lice. Has had constipation,
rectal prolapse while inpatient. colorectal has reduced prolapse.
xray still with moderate stool, likely multifactorial
- give enema to help initiate stool, reached out to colorectal as well.
- currently on dulcolax miralax but may need full prep
Subjective
Subjective
Date of Service: April 28, 2025
Pt bloated, constipated, xray doesn't look much different
Objective
Data Reviewed
Laboratory Data:
Laboratory Results
04/28/25 06:36
04/28/25 06:36
Laboratory Results
PT 14.0 Sec (11.4-14.6) 04/21/25 19:52
INR 1.04 04/21/25 19:52
APTT 22.0 Sec (23.4-35.0) L 04/21/25 19:52
Phosphorus 3.1 mg/dl (2.5-4.5) 04/23/25 04:22
Magnesium 1.8 mg/dl (1.6-2.3) 04/23/25 04:22
Total Bilirubin 0.4 mg/dl (0.2-1.3) 04/28/25 06:36
AST 32 U/L (14-36) 04/28/25 06:36
ALT 24 U/L (0-35) 04/28/25 06:36
Alkaline Phosphatase 83 U/L (38-126) 04/28/25 06:36
Lipase 58 U/L (23-300) 04/25/25 09:53
Vital Signs and I&O:
Vital Signs
Temp Pulse Resp BP Pulse Ox
98.6 F 72 18 136/76 97
04/28/25 07:11 04/28/25 07:11 04/28/25 07:11 04/28/25 07:11 04/28/25 07:11
I&O
04/27/25 04/28/25 04/29/25
06:59 06:59 06:59
Intake Total 1800 / 1800 2930 / 2930
Output Total 1500 / 1500
Balance 1800 / 1800 1430 / 1430
Physical Exam
Physical Exam
GI: Soft and Non Tender
[2025-04-28 15:11] VITALS: BP 132/69
[2025-04-28] MEDS: LOVENOX SC (16:48)
--- NOTE | 2025-04-28 17:12 | PTCARENOTE ---
Patient is ordered an enema. Patient agreable to enema, but wants to eat first. RN asked patient to let her know when she is ready for enema. Patient verbalized understanding.
[2025-04-28] MEDS: MELATONIN 3 MG PO (21:55)
[2025-04-28] MEDS: REMOVE NICOTINE PATCH REMOVE (21:55)
[2025-04-28 22:41] VITALS: BP 134/92
--- NOTE | 2025-04-29 00:38 | PTCARENOTE ---
Pt received 500 ml of milk and molasses enema. Pt having adequate relief from enema. Care ongoing.
[2025-04-29] MEDS: ZOSYN 50 IV ×2 (01:47→08:00)
[2025-04-29] MEDS: SUBUTEX 2 MG SL (02:02)
[2025-04-29] MEDS: ZANAFLEX 2 MG PO (02:02)
[2025-04-29] MEDS: NICODERM TRANSDERMAL 7 MG TRANSDERM (08:00)
[2025-04-29] MEDS: VITAMIN B1 100 MG PO (08:01)
[2025-04-29] MEDS: MIRALAX 17 GRAMS PO (08:01)
[2025-04-29] MEDS: SUBUTEX 16 MG SL (08:01)
[2025-04-29] MEDS: FOLVITE 1 MG PO (08:01)
[2025-04-29] MEDS: SENOKOT-S 1 TABLET PO (08:01)
[2025-04-29 08:02] LABS: Hematocrit 39.5 % (37.0-47.0); Hemoglobin 12.5 g/dL (12.0-16.0); Mean Corp Hgb Conc. 31.6 g/dL (33.0-37.0); Mean Corpuscular Volume 82.5 fL (81.0-99.0); Nucleated Red Blood Cells % 0 %; Platelet Count 551 10^3/uL (130-400); Red Cell Dist. Width 14.9 % (11.5-14.5)
[2025-04-29 08:04] VITALS: BP 125/92
[2025-04-29 08:09] LABS: ALT (SGPT) 21 U/L (0-35); AST (SGOT) 26 U/L (14-36); Albumin 5.1 g/dl (3.5-5.0); Alkaline Phosphatase 66 U/L (38-126); Blood Urea Nitrogen 16 mg/dl (7-17); Calcium 9.9 mg/dl (8.4-10.2); Carbon Dioxide 28 mmol/L (22-30); Chloride 96 mmol/L (98-107); Estimated Creatinine Clearance 100 ml/min; Glucose 100 mg/dl (70-99); Potassium 5.0 mmol/L (3.5-5.1); Sodium 136 mmol/L (135-145); Total Protein 9.3 g/dl (6.3-8.2); eGFR > 60.00
[2025-04-29 08:21] LABS: C-Reactive Protein 10.20 mg/L (0.0-10.00)
--- NOTE | 2025-04-29 08:48 | PTCARENOTE ---
Personal belongings dropped off yesterday from care home. Pt wearing her clothes. Discussed possiblity of clothes being infested with lice - pt showered, changed in to patient gown, linens changed. Personal belongings and soiled linens double bagged and
set aside. No obvious lice seen. Pt c/o feeling itchy.
--- NOTE | 2025-04-29 09:59 | CM ---
Addendum entered by Mabel Barton 04/29/25 13:59:
Patient stated to nurse that '[facility] was outside to pick her up'
CM called [facility] - they received fax & were reviewing it.
CM & Kyleigh nurse saw patient and CM explained that it was not [facility] as they just received fax
When asked if CM could call her aunt she said 'no' when asked who was outside 'none of your business'
hospitalist notified and patient signed out AMA-hospitalist signed form
Addendum entered by Mabel Barton 04/29/25 12:54:
Patient to call [facility] so they can do screening, gave her phone #
Original Note:
CM spoke with patient Aunt Gilda Vargas [phone]
Gilda states that she has been speaking to [facility] at [facility] in [phone]
she stated to they do accept patient insurance and that they would need clinicals faxed to them [phone]. Gilda also stated that [facility] would provide transportation to their facility from the hospital which CM confirmed.
CM called [facility] and spoke with BETHANIE who stated for CM to fax clinicals which CM did & that once they have clinicals they submit it for medical review & will get back to . He also stated they need to have the patient call so they can do a
screening with her.
PLAN: [facility] in [place], await determination, clinical's faxed
--- NOTE | 2025-04-29 11:10 | W.PN.GI.CBS2 ---
Today's Communication / Plan
-
outpt bowel regimen as below
Assessment / Plan
-
Pt is a 34yo with hx IVDA and ETOH abuse, hep C with treatment about 1 year ago, homelessness brought [facility] with nausea, vomiting, and hallucinations and concern for withdrawal and also lice. Has had constipation,
rectal prolapse while inpatient. colorectal has reduced prolapse.
much better after enema
- outpatient regimen should include enema or dulcolax timed (such as weekly) to help with constipation due to prolapse, dulcolax 5mg with 1 glass miralax bid
- minimize narcotics
- outpt colorectal f/u
will sign off call with questions
Subjective
Subjective
Date of Service: April 29, 2025
Pt with large bm with enema. feels better
Objective
Data Reviewed
Laboratory Data:
Laboratory Results
04/29/25 06:55
04/29/25 06:55
Laboratory Results
PT 14.0 Sec (11.4-14.6) 04/21/25 19:52
INR 1.04 04/21/25 19:52
APTT 22.0 Sec (23.4-35.0) L 04/21/25 19:52
Phosphorus 3.1 mg/dl (2.5-4.5) 04/23/25 04:22
Magnesium 1.8 mg/dl (1.6-2.3) 04/23/25 04:22
Total Bilirubin 0.3 mg/dl (0.2-1.3) 04/29/25 06:55
AST 26 U/L (14-36) 04/29/25 06:55
ALT 21 U/L (0-35) 04/29/25 06:55
Alkaline Phosphatase 66 U/L (38-126) 04/29/25 06:55
Lipase 58 U/L (23-300) 04/25/25 09:53
Vital Signs and I&O:
Vital Signs
Temp Pulse Resp BP Pulse Ox
98.1 F 101 16 125/92 95
04/29/25 08:04 04/29/25 08:04 04/29/25 08:04 04/29/25 08:04 04/29/25 08:04
I&O
04/28/25 04/29/25 04/30/25
06:59 06:59 06:59
Intake Total 2930 / 2930 1320 / 1320
Output Total 1500 / 1500
Balance 1430 / 1430 1320 / 1320
Physical Exam
Physical Exam
GI: Soft, Non Distended and Non Tender
Neuro: Non Focal
--- NOTE | 2025-04-29 12:01 | W.PN.HOSP.TC ---
Today's Communication/Plan
-
Medically stable for discharge
await case management
Aggressive bowel regiment
Outpatient colorectal surgery follow-up
Assessment / Plan
Assessment / Plan
34yo F with PMHx of drug abuse including IVDA and alcohol, Hx of L4-L5 epidural abscess s/p IV Abx in [place] in Jul 2024, currently homeless brought from incarceration after found with nausea, vomiting and hallucinations. Managed for polysubstance
abuse and withdrawal
A/P:
#Abdominal pain with fever, leukocytosis most likely 2/2 proctitis
#Ileus and constipation - iatrogenic
CT abd: acute uncomplicated proctocolitis from the descending colon to the rectum. Large right colonic stool burden. Dilated intrahepatic and extrahepatic biliary ducts, nonspecific
LFT, lactate and Lipase remained WNL
Zosyn can further be discontinued as leukocytosis resolved. Afebrile. Constipation resolved.
Status post bowel regimen leading to rectal prolapse. CRS following and found prolapse to be reducible. Outpatient follow-up for surgery
Status post aggressive bowel regiment. Status post enema x 2. Significant bowel movements. Abdominal pain resolved.
GI input requested.
#Rectal prolapse
Reduced by CRS team. Plan for outpatient follow-up for eventual surgery.
#Small caliber right external iliac vein
VascSx consult: no further mgmt needed, possible sequela of previous trauma
#Polysubstance abuse with withdrawal, impending DT
#Hallucinations 2/2 withdrawal
Precedex drip to wean off, cont phenobarb - tapering, MSAS and Subutex - now on standing 16mcg daily
UDS: Opiates, Fentanyl, Barbiturates, Amphetamines, Methamphetamines, BZD positive
Unable to tolerate CT at this time, but if mentation not improving- CT head
Thiamine Wernicke protocol
FOlate
MSAS
lipase WNL
Head CT without acute findings
#Acute on chronic lower back pain-resolved
#Hx of L4-L5 epidural abscess
Partial vertebral body fusion across the L4-5 disc space, possibly related to prior infection or injury in this region, no other worrisome findings on CT in lower spine.
Bcx NTD
#Subclinical hyperthyroidism
most likely 2/2 Fentanyl
TSH 0.25, FT4 WNL
repeat TFT 2-3 weeks upon recovery
#Head lice
Permethrin application x 3.
#Elevated BP 2/2 withdrawal
Monitor for now
#Hypokalemia
#Hypomagnesemia
replete
follow electrolytes
#PVCs 2/2 withdrawal and hypokalemia
resolved
#Reactive thrombocytosis
resolved
#Microcytosis
2/2 drug abuse
iron panel WNL
#Mild hyponatremia
Monitor for now
#Mild thrombocytosis
DVT ppx lovenox
Full code
Anticipated Discharge: Today
Subjective/Interval History
-
Date of Service: April 29, 2025
Denies any abdominal pain.
States resolution of constipation after enema
Objective Data
-
Labs:
Laboratory Results
04/29/25
06:55
WBC 8.7
Hgb 12.5
Hct 39.5
Plt Count 551 H D
Sodium 136
Potassium 5.0
Chloride 96 L
Carbon Dioxide 28
BUN 16
Creatinine 0.6
Glucose 100 H
Calcium 9.9
Total Bilirubin 0.3
AST 26
ALT 21
Alkaline Phosphatase 66
Vital Signs:
Vital Signs
Temp Pulse Resp BP Pulse Ox
98.1 F 101 16 125/92 95
04/29/25 08:04 04/29/25 08:04 04/29/25 08:04 04/29/25 08:04 04/29/25 08:04
I&O
04/28/25 04/29/25 04/30/25
06:59 06:59 06:59
Intake Total 2930 / 2930 1320 / 1320
Output Total 1500 / 1500
Balance 1430 / 1430 1320 / 1320
Physical Exam
-
General: No Apparent Distress, Appears Chronically Ill and Other (disshelved)
HEENT: Normocephalic, Atraumatic and Moist Mucous Membranes
Respiratory: Clear to Auscultation
Cardiac: Regular Rhythm and S1/S2
GI: Soft, Nontender, Nondistended, Normal Bowel Sounds and Tender
Musculoskeletal: No Clubbing, No Cyanosis and No Edema
Neuro: Awake, Alert, Oriented and AO x 3
Psych: Calm
--- NOTE | 2025-04-29 14:03 | W.PN.UPDATE ---
Update Note
Progress Note Update
Received text from RN that patient wants to leave AGAINST MEDICAL ADVICE. Patient signed AMA form and left the hospital.
--- NOTE | 2025-04-29 14:04 | W.DCSUMMARY ---
Discharge Summary
Discharge Data
Date of Admission: 04/21/25
Date of Discharge: 04/29/25
-
Pending Results: No
Hospital Course
34-year-old female past medical history of IV drug abuse, alcohol abuse, history of lumbar abscess status post course of IV antibiotics who is brought in from correction as patient with complaints of nausea, vomiting and hallucination. Patient was
found to be polysubstance abuse with withdrawal and was started on Precedex drip patient finished phenobarbital. Patient was started on Subutex protocol. Patient urinary drug screen was positive for multiple substances. Patient was started on IV
fluids. Patient mentation slowly improved and was weaned off Precedex drip. Patient weaned off phenobarbital. Patient was continued on Suboxone. Patient was also complaining of abdominal pain. Patient have a CT abdomen pelvis. Patient was
found to have a small caliber right external iliac vein and vascular surgery was consulted. He said no intervention required. Patient was also found to have his severe constipation and proctitis. Patient was on IV antibiotics. Colorectal was
also consulted patient had a rectal prolapse which was reducible. Patient will need to follow-up outpatient with colorectal surgery. Patient was also proctitis and severe ileus and gastroenterology was consulted. Patient received aggressive bowel
regimen including p.o. and enema which led to improvement. Patient had multiple bowel movements. Patient was tolerating diet without any difficulty. Initial plan was for patient to go to detox rehabilitation directly from hospital however patient
decided to leave AGAINST MEDICAL ADVICE and patient did not wait for physician to advise her against it. Patient left the hospital after signing AMA form.
Discharge Plan
-
Patient Disposition: Against Medical Advice
Discharge Diagnosis/Procedures: Abdominal pain with fever, leukocytosis most likely secondary to proctitis
Ileus
Rectal prolapse
Polysubstance abuse with withdrawal
Hallucinations secondary to withdrawal
Subclinical hyperthyroidism
Head lice
Referrals:
Mario Alberto Carson MD [Active, ColoRectal]
UNKNOWN - PT DOES,NOT KNOW [Family Provider]
Prescriptions:
No Action
Unobtainable
0
Discharge Orders:
Discharge Patient (As Directed); Ordered 04/29/25
Ordered By: Jos Gabriel
Discharge Date and Time
Discharge Date/Time: 04/29/25 14:35
Print Language: GIBRALTARIAN
--- NOTE | 2025-04-29 14:18 | PTCARENOTE ---
Pt called nurse to room asking for shirt because 'her ride was here and she had to go'. (Pt's clothes had been accidentally discarded after being bagged up earlier today - pt was provided with scrub pants and a pt gown at that time). Pt stated that
the rehab facility was here to pick her up - nursing confirmed with case management that she had not been accepted yet to this place and no discharge was arranged yet. No discharge order. Informed patient of no discharge and that we spoke to the
rehab, said she never completed the intake. Pt stated 'oh well, I have to leave anyway - I have some things I need to take care of'. Pt informed this would be AMA and pt was agreeable to sign the AMA form. Pt had removed her own midline prior to
asking for a shirt. Hospital socks and shirt provided, pt walked out of hospital. aware of AMA.
== END 2025-04-29 14:35 | disposition left against medical advice (07) | DRG 894 ==
LOC: 3 WEST ACU 17:27
PROVIDERS: Emergency Medicine; Nurse Practitioner Adult Health; Nurse Practitioner Gerontology; ADMITTING PHYSICIAN Internal Medicine; ATTENDING PHYSICIAN Hospitalist; CONSULT PHYSICIAN Internal Medicine; CONSULT PHYSICIAN Internal Medicine Gastroenterology; CONSULT PHYSICIAN Surgery; EMERGENCY PHYSICIAN Emergency Medicine
DX: F11.23 Opioid dependence with withdrawal (principal); Z59.00 Homelessness unspecified; E87.1 Hypo-osmolality and hyponatremia; K56.7 Ileus, unspecified; Z68.1 Body mass index [BMI] 19.9 or less, adult; K62.3 Rectal prolapse; E05.90 Thyrotoxicosis, unspecified without thyrotoxic crisis or storm; B85.0 Pediculosis due to Pediculus humanus capitis; E87.6 Hypokalemia; I49.3 Ventricular premature depolarization; D75.838 Other thrombocytosis; D72.829 Elevated white blood cell count, unspecified; Z53.29 Procedure and treatment not carried out because of patient's decision for other reasons; B19.20 Unspecified viral hepatitis C without hepatic coma; D64.9 Anemia, unspecified; F15.93 Other stimulant use, unspecified with withdrawal; F10.131 Alcohol abuse with withdrawal delirium; F17.200 Nicotine dependence, unspecified, uncomplicated; I10 Essential (primary) hypertension; Z11.52 Encounter for screening for COVID-19; R63.6 Underweight
CPT/HCPCS: 70450; 71045; 71260; 74018; 74177; 80048; 80053; 80306; 80307; 81003; 81015; 82077; 82728; 82805; 82962; 83540; 83550; 83605; 83690; 83735; 84100; 84439; 84443; 84703; 85025; 85045; 85610; 85730; 86140; 86803; 87040; 87070; 87086; 87389; 87502; 87522; 87811; 93005; 96361; 96374; 96375; 99291; Q9967